=== PATIENT | female | born 1945 | race Caucasian/White ===

== ENCOUNTER → 2016-09-17 | Outpatient (CLI) | payer MEDICARE, OTHER ==
[2014-04-24 12:35] VITALS: BP 132/68
[~2016-09-17] MED LIST: ACET500T33 PO; APIX5TAB PO; ASCO500T PO; ASPI-482 PO; ATOR10TA PO; BIOT25005 PO; BUPIVACAINE MPF 0.25% 10 ML VIAL. ONE; CALTRATE 600 +1 EAC2 PO; CARV6.252 PO; CETI10TA22 PO; CILO50TA10 PO; CLOP75TA27 PO; DILT180C29 PO; DILT240C32 PO; DOFE500C PO; DRON400T PO; FERR325T20 PO; FURO20TA3 PO; GABA-586 PO; LISI40TA PO; MAGN250T5 PO; METO25TA9 PO; MULT1TAB6 PO; OMEG-33 PO; OMEP20TA63 PO; POLY17PO5 PO; POTA20TA82 PO; TORS20TA2 PO; TRAM50TA PO; methylPREDNISolone ACETATE 40 MG/ML VIAL. ONE
--- NOTE | 2016-09-18 01:40 | PAIN ---
DATE OF SERVICE: 09/17/2016 PROGRESS NOTE DIAGNOSES: 1. Myofascial pain. 2. Lumbar radiculopathy with lumbar spinal stenosis and post-lumbar laminectomy syndrome. 3. Cervical radiculopathy with cervical degenerative disk disease. HISTORY OF PRESENT ILLNESS: The patient is a 71-year-old female who returns for followup status post trigger point injections as well as lumbar epidural steroid injections. The patient has done well with each of these most recently. The trigger points have been doing quite well. She reports about 90% improvement after the last injections, which was 07/16/2016. The patient reports the pain is returning now in the left arm and upper extremity and shoulder more significant than it was before. The patient did have new x-rays of her cervical spine showing [id number] multilevel degenerative disk disease, advance since 2009 with bjygvcll-[id number] disk space at C3-C4, C4-C5, C6-C7, progressed since prior study with [id number] spurring at C6-C7, also progressed since previous study and bony foraminal narrowing at C4-C5, C5-C6 on the right and moderate foraminal narrowing at C3-C4 on the left. The patient reports still significant pain radiating to the left upper extremity aching and dull, decreased rotation of motion of the shoulder secondary to the pain. The patient reports the pain as an 8 on a scale of 10 currently. She has been taking oxycodone as well as a muscle relaxer, she is uncertain the name of. Also, arthritis strength Tylenol. She is having difficulty sleeping, most significantly the pain seems to be worse at the end of the day, in the evening when she is trying to get some sleep, it becoming much more difficult. The patient reports no new motor or sensory deficits, no new bowel or bladder incontinence or other complaints. PHYSICAL EXAMINATION: VITAL SIGNS: The patient's blood pressure is 130/64, pulse 62, respirations 18, temperature 97.8 degrees Fahrenheit and weight is 160 pounds. GENERAL: The patient is awake, alert, oriented, appropriate, very pleasant demeanor. HEENT: Head shows normocephalic, atraumatic. Extraocular movements are intact and symmetrical. Oral cavity shows mucous membranes moist and pink. Dentition is intact. NECK: Shows anterior throat supple without palpable lymphadenopathy noted. Swallow reflex is symmetrical. CHEST: Shows normal on inspection. Breath sounds are clear to auscultation bilaterally. HEART: Shows S1 and S2 clear. ABDOMEN: Soft, nontender, nondistended. No palpable organomegaly is noted. BACK: Shows spine grossly in midline. Cervical paraspinous musculature shows some moderate tenderness with palpation more specifically in the left than the right, but present bilaterally in the cervical paraspinous musculature, very firm rope-like musculature bilaterally as well as into the trapezius, in superomedial and lateral aspect of the trapezius, more on the left than the right, also suprascapular and infrascapular regions, very firm rope-like tenderness on the left, but not the right. Rhomboid muscle shows rope-like tenderness in multiple areas of trigger point musculature on the left side compared to the right as well. EXTREMITIES: Upper extremities show deep tendon reflexes at 1+ in the biceps and triceps tendons. Motor exam is strong with remote ruby on rails developer strength rated at 5/5 bicep and tricep flexion approximately 4 on a scale of 5, but equal and symmetrical. PLAN: Options were discussed with the patient. The patient's old chart was reviewed as her current medication regimen and updated. Current review of systems updated today as well. We will proceed with trigger point injections today in the aforementioned musculature. Risks were again discussed including, but not limited to bleeding, infection, possibility of intravascular injection sequelae, spread of local anesthetic and numbness, pneumothorax, side effects of steroid medication and poor results regarding pain control. The patient understands and wished to proceed. The patient will return to clinic in approximately 2 weeks for followup. He was counseled to return appointment, activity level and side effects to be aware of. I also discussed potential of cervical epidural steroid injection. 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 If this is cleared and deemed to be safe, we may do this in the future if the radicular component of her pain returns in the left upper extremity with regard to her new symptoms and findings on her cervical spine films. DIAGNOSES: 1. Myofascial pain. 2. Cervical radiculopathy with cervical degenerative disk disease. PROCEDURE: Trigger point injections of the bilateral cervical paraspinous musculature, bilateral trapezius, left deltoid musculature, posterior and lateral aspect and the left supra and infrascapular musculature and left rhomboid musculature using local anesthetic under sterile prep and drape. MEDICATIONS INJECTED: A total of 40 mg of Depo-Medrol plus a total of 14 mL of 0.25% bupivacaine. CONDITION AT DISCHARGE: Stable. The patient tolerated procedure well, had no complications. JANNETH TAYLOR MD DR: MIHAELA/carmen JOB#: [id number] / [id number]
== END | disposition home or self-care (01) ==
LOC: PNCL 07:30
PROVIDERS: ATTEND Anesthesiology
DX: M79.1 Myalgia (principal); M50.10 Cervical disc disorder with radiculopathy, unspecified cervical region; I10 Essential (primary) hypertension; K21.9 Gastro-esophageal reflux disease without esophagitis; Z90.49 Acquired absence of other specified parts of digestive tract; I73.9 Peripheral vascular disease, unspecified; I48.91 Unspecified atrial fibrillation; E78.00 Pure hypercholesterolemia, unspecified; Z79.01 Long term (current) use of anticoagulants; Z95.1 Presence of aortocoronary bypass graft; Z98.41 Cataract extraction status, right eye
CPT/HCPCS: 20553; J1030; J3490

== ENCOUNTER → 2016-10-29 | Outpatient (CLI) | payer MEDICARE, OTHER ==
[2014-04-24 12:35] VITALS: BP 132/68
--- NOTE | 2016-10-29 13:13 | PAIN ---
DATE OF SERVICE: 10/29/2016 PROGRESS NOTE FOR PAIN CLINIC DIAGNOSES: 1. Myofascial pain. 2. Lumbar radiculopathy with lumbar spinal stenosis and post-lumbar laminectomy syndrome. 3. Cervical radiculopathy with cervical degenerative disk disease. HISTORY OF PRESENT ILLNESS: The patient is a 71-year-old female, who returns today for followup status post trigger point injections in the upper neck, shoulders, upper back and left shoulder. The patient reports she did very much better with the neck pain, still has some pain in the left shoulder radiating to the left arm, mostly in the posterior aspect of the trapezius on the left side and into the forearm and hand, which is stinging and burning, also some tingling, stiff in the shoulders as well. She reports she saw her orthopedic surgeon, had an injection in the intra-articular aspect of the left shoulder, which helped the pain. We discussed about cervical epidural steroid injection with the patient; however, ____ clear her to be off her Eliquis for an adequate period of time to perform a neuraxial injection. The patient reports her pain as 8-9 on a scale of 10, significant the base of the neck and shoulders better in the upper neck after the last injections, but still painful, shoulders, neck on the left side radiates to the left arm in a radicular fashion, once again to the forearm and hand. The patient reports also some low back pain in the lumbar distribution and radiating into the bilateral buttock region. The patient reports no new motor or sensory deficits, no new bowel or bladder incontinence or other complaints. PHYSICAL EXAMINATION: VITAL SIGNS: The patient's blood pressure is 122/63, pulse 60, respirations 18, temperature is 98.2 degrees Fahrenheit, height is 5 feet 2 inches, weight is 159 pounds. GENERAL: The patient is awake, alert, oriented, appropriate, very pleasant demeanor. HEENT: Head shows normocephalic, atraumatic. Extraocular movements are intact, symmetrical. Oral cavity, mucous membranes moist and pink. Dentition is intact. NECK: Shows anterior throat supple without palpable lymphadenopathy noted. Swallow reflex is symmetrical. CHEST: Shows normal on inspection. Breath sounds are clear to auscultation bilaterally. HEART: Shows S1 and S2 clear. ABDOMEN: Soft, nontender, nondistended. No palpable organomegaly is noted. BACK: Shows spine grossly midline. Cervical paraspinous muscle shows some moderate tenderness with palpation and very firm rope-like musculature consistent with trigger point areas of musculature throughout the cervical paraspinous muscles. Upper lobe ____ and middle distribution to moderate extent more severe painful in the superior medial trapezius, more on the left than the right, as well as lateral trapezius on the left with very firm rope-like musculature consistent with trigger point areas of muscle in this region as well as the anterior and lateral deltoid on the left side, very significantly tender in these regions, also with some radiation into the bicep as well as some tricep with posterior deltoid palpation. The patient does show tenderness as well as the rhomboid distribution, also the patient's low back with well-healed surgical scars noted in the lumbar distribution, some very firm musculature in this region as well with very firm, tender rope-like muscles bilaterally in the low lumbar paraspinous musculature with radiation to the posterior gluteus with palpation bilaterally. EXTREMITIES: Upper extremities showed deep tendon reflexes at 1+ in the biceps and triceps tendons. Motor exam is strong with sustainability director strength about 5/5 on the right and 4/5 on the left. Options were discussed with the patient and the patient's old chart was reviewed as her current medication regimen updated. Current review of systems updated today as well. We will proceed with trigger point injections of the aforementioned musculature. Risks were then discussed including, but not limited to bleeding, infection, possibility of epidural hematoma, subsequent neurologic compromise, dural puncture, headaches, spinal cord and/or nerve damage, side effects of steroid medication and poor results regarding pain control. The patient understands and wishes to proceed. The patient will return to clinic in approximately 2 weeks for followup, was counseled on return appointment, activity level and side effects to be aware of. DIAGNOSES: 1. Myofascial pain. 2. Cervical radiculopathy with cervical degenerative disk disease. PROCEDURE: Trigger point injections of the bilateral cervical paraspinous musculature, bilateral trapezius, bilateral lumbar paraspinous musculature and left deltoid using local anesthetic under sterile prep and drape, medications injection is total of 40 mg Depo-Medrol plus total of 14 mL of 0.25% bupivacaine after negative aspiration at each injection. CONDITION AT DISCHARGE: Stable. The patient tolerated procedure well, had no complications. JANNETH TAYLOR MD DR: MIHAELA/carmen JOB#: [id number] / [id number]
== END | disposition home or self-care (01) ==
LOC: PNCL 08:43
PROVIDERS: ATTEND Anesthesiology
DX: M79.1 Myalgia (principal); M50.10 Cervical disc disorder with radiculopathy, unspecified cervical region; M48.06 Spinal stenosis, lumbar region; M54.16 Radiculopathy, lumbar region; M96.1 Postlaminectomy syndrome, not elsewhere classified; E78.00 Pure hypercholesterolemia, unspecified; I10 Essential (primary) hypertension; K21.9 Gastro-esophageal reflux disease without esophagitis; M19.90 Unspecified osteoarthritis, unspecified site; D64.9 Anemia, unspecified; Z90.49 Acquired absence of other specified parts of digestive tract; Z72.89 Other problems related to lifestyle
CPT/HCPCS: 20553; J1030; J3490

== ENCOUNTER → 2016-12-20 | Outpatient (CLI) | payer MEDICARE, OTHER ==
[2014-04-24 12:35] VITALS: BP 132/68
[~2016-12-20] MED LIST changes: -BUPIVACAINE MPF 0.25% 10 ML VIAL. ONE; +POLY17PO29 PO; -POLY17PO5 PO; -methylPREDNISolone ACETATE 40 MG/ML VIAL. ONE
--- NOTE | 2016-12-20 13:35 | KCIC ---
PROCEDURE MR of the left shoulder HISTORY Left shoulder pain since August. Weakness. TECHNIQUE Routine multiplanar sequences are obtained. COMPARISON None FINDINGS Moderate motion degradation. Acromioclavicular joint is mildly degenerative. Mild fluid within the joint. Thickening and hyperintensity of the rotator cuff compatible with tendinosis. Partial tearing of the upper subscapularis tendon insertion. No measurable supraspinatus or infraspinatus tendon tear. No significant subdeltoid bursal fluid. No significant glenohumeral joint effusion. Degenerative signal within the superior labrum. No clear-cut labral detachment. Biceps tendinosis with thickening and signal. No evidence of dislocation. No bone lesion or acute fracture. No acute soft tissue injury. At least mild chondromalacia at the glenohumeral joint. IMPRESSION 1. Rotator cuff tendinosis. Small partial tear at the upper subscapularis tendon. 2. Superior labral degeneration. 3. Biceps tendinosis. Electronically signed by: Felipe Brice MD (December 20, 2016 13:34:07)
== END | disposition home or self-care (01) ==
LOC: KCIC MRI 11:32
PROVIDERS: ATTEND Orthopaedic Surgery
DX: M25.512 Pain in left shoulder (principal)
CPT/HCPCS: 73221

== ENCOUNTER → 2017-04-25 | Outpatient (CLI) | payer MEDICARE, OTHER ==
[2014-04-24 12:35] VITALS: BP 132/68
[~2017-04-25] MED LIST changes: -BIOT25005 PO; +BIOT25006 PO; +BUPIVACAINE MPF 0.25% 10 ML VIAL. ONE; -CLOP75TA27 PO; +CLOP75TA57 PO; +MAGN250T10 PO; -MAGN250T5 PO; +METH-37 PO; +METO-239 PO; -METO25TA9 PO; +methylPREDNISolone ACETATE 40 MG/ML VIAL. ONE
--- NOTE | 2017-04-25 09:39 | PAIN ---
DATE OF SERVICE: 04/25/2017 DIAGNOSES: 1. Myofascial pain. 2. Lumbar radiculopathy with lumbar spinal stenosis and post-lumbar laminectomy syndrome. 3. Cervical radiculopathy with cervical degenerative disk disease. HISTORY OF PRESENT ILLNESS: The patient is a 71-year-old female who returns for followup status post trigger point injections, last seen on 10/30/2015. The patient did very well with the injections with about 70% improvement in the neck, upper back, and lower back pain. The patient reports the pain is beginning to return now in the neck, shoulders, upper back, mid back, especially in the low back, across the low back radiating to the lower extremities as well. The patient reports it is a 10 on a scale of 10 at its worst, 8 on average and a 7 on a scale of 10 at its least and it is 7 today. The patient reports it is constant, aching, burning, sometimes shooting pain but dull aching, tight sensation in the base of the neck and shoulders as well as in the low back. She has been increasing her activity, recently she was helping a friend move some objects to a new location at her home and has exacerbated the pain to some extent she believes, mostly in the low back. The patient reports it awakens her from sleep occasionally, but she sleeps about 6-7 hours a night. She can reposition or change positions to get back to sleep without too much difficulty. It is much worse during the day, walking, standing, changing positions, again with increased activity here recently. MEDICATIONS: The patient's medication list includes MiraLax, Tylenol, Prilosec, lisinopril, and Lipitor. 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 She is currently on antibiotic that has been on for about 9 days for recent sinus infection. ALLERGIES: THE PATIENT IS ALLERGIC TO PENICILLIN AND MORPHINE. REVIEW OF SYSTEMS: The patient's review of systems is positive for those items mentioned in history of present illness. All systems reviewed and otherwise negative. This is updated and well documented on the patient's chart. PHYSICAL EXAMINATION: VITAL SIGNS: The patient's blood pressure is 147/70, pulse 70, respirations 20, temperature is 97.8 degrees Fahrenheit, height is 5 feet 2 inches, weighs 153 pounds. GENERAL: The patient is awake, alert, oriented, appropriate, very pleasant demeanor. HEENT: Head shows normocephalic, atraumatic. Extraocular movements are intact, symmetrical. Oral cavity, mucous membranes are moist and pink. Dentition is intact. NECK: Shows anterior throat supple without palpable lymphadenopathy noted. Swallow reflex is symmetrical. CHEST: Shows normal on inspection. Breath sounds are clear to auscultation bilaterally. HEART: Shows S1 and S2 clear. ABDOMEN: Soft, nontender, nondistended. No palpable organomegaly is noted. No rebound or guarding demonstrated. BACK: Shows spine grossly in the midline. Slight exaggeration of thoracic kyphosis and mild flattening of lumbar lordotic curvature. Well healed surgical scars noted in the lumbar distribution. Cervical paraspinous musculature shows symmetrical. On inspection with palpation shows very firm, rope-like musculature in the inferior aspect of the cervical paraspinous muscles bilaterally as well as into the left greater than right trapezius into the superior medial aspect of the trapezius, also into the inferior aspect of the trapezius, very firm rope-like musculature, very tender with palpation consistent with trigger point areas of musculature bilaterally, again more tender on the left than the right rhomboid distribution as well as suprascapular region on the left, but not on the right side in the suprascapular region. Thoracic paraspinous muscle shows some supple musculature without significant trigger points. Palpation of the lumbar paraspinal musculature; however, shows significant tenderness, again left greater than right in the paraspinous musculature in the upper, middle and lower distribution with very firm rope-like musculature, very tender to touch, very palpable and firm, again slightly hypertrophied in the left compared to the right. The patient shows no tenderness over the spinous processes; however, sacrum or sacroiliac regions are very mildly tender only. The patient shows good rotation and motion of the lumbar spine, both laterally as well as extension and flexion without significant difficulty or pain reported. EXTREMITIES: The patient's lower extremities show deep tendon reflexes 1+ in the patellar and tendo calcaneus tendons. Motor exam is strong with dorsiflexion, extension, quadriceps and hamstring flexion rated at 4 on a scale of 5, but equal and symmetrical. Peripheral pulses are 1+ posterior tibial and dorsalis pedis pulses. No peripheral edema is noted. No clubbing or cyanosis. Upper extremity showed deep tendon reflexes 2+ in the biceps and triceps tendons and stereo map plotter operator strength is strong at about 4-5 on a scale 5 with stereo map plotter operator strength biceps and triceps flexion without exacerbation of pain with these maneuvers. Options were discussed with the patient and the patient's old chart was reviewed as her current medication regimen updated. Current review of systems updated today as noted. We will proceed with a series of trigger point injections of the aforementioned musculature, bilateral cervical paraspinous trapezius bilaterally, rhomboid distribution, lumbar paraspinous musculature bilaterally as well. Risks were discussed including but not limited to bleeding, infection, possibility of intravascular injection sequelae, spread of local anesthetic and numbness, pneumothorax, side effects of steroid medication and poor results regarding pain control. The patient understands and wishes to proceed. The patient will return to clinic in approximately 2 weeks for followup. She was counseled on return appointment, activity level and side effects to be aware of. DIAGNOSIS: Myofascial pain. PROCEDURE: Trigger point injections, bilateral cervical paraspinous musculature, bilateral trapezius, bilateral rhomboids, left suprascapular region and bilateral lumbar paraspinous musculature upper, middle and lower using local anesthetic under sterile prep and drape. MEDICATION: A total of 17 mL of 0.25% bupivacaine plus 40 mg total Depo-Medrol. The patient's condition at discharge is stable. The patient tolerated procedure well, had no complications. JANNETH TAYLOR MD DR: MIHAELA/carmen JOB#: [id number] / [id number]
== END | disposition home or self-care (01) ==
LOC: PNCL 08:15
PROVIDERS: ATTEND Anesthesiology
DX: M79.1 Myalgia (principal); M50.10 Cervical disc disorder with radiculopathy, unspecified cervical region; M48.06 Spinal stenosis, lumbar region; M96.1 Postlaminectomy syndrome, not elsewhere classified; E78.00 Pure hypercholesterolemia, unspecified; K21.9 Gastro-esophageal reflux disease without esophagitis; D64.9 Anemia, unspecified; F17.200 Nicotine dependence, unspecified, uncomplicated; Z88.6 Allergy status to analgesic agent; Z88.0 Allergy status to penicillin; Z98.41 Cataract extraction status, right eye; Z90.49 Acquired absence of other specified parts of digestive tract; Z86.69 Personal history of other diseases of the nervous system and sense organs; Z72.89 Other problems related to lifestyle; Z98.890 Other specified postprocedural states; Z86.718 Personal history of other venous thrombosis and embolism
CPT/HCPCS: 20553; J1030; J3490

== ENCOUNTER → 2017-07-21 | Outpatient (CLI) | payer MEDICARE, OTHER ==
[2014-04-24 12:35] VITALS: BP 132/68
--- NOTE | 2017-07-21 09:36 | PAIN ---
DATE OF SERVICE: 07/21/2017 PROGRESS NOTE FOR PAIN CLINIC DIAGNOSES: 1. Myofascial pain. 2. Lumbar radiculopathy with lumbar spinal stenosis, post-lumbar laminectomy syndrome. 3. Cervical radiculopathy with cervical degenerative disk disease. HISTORY OF PRESENT ILLNESS: The patient is a 72-year-old female who returns for followup status post trigger point injections, last seen on 06/05/2017. The patient did very well with about 80% improvement overall. The patient reports increasing activity and doing a lot more stationary bicycle riding and also walking and having some pain in her knees, the pain in her back, neck and shoulders is now returning to a mild extent, not to the baseline it was a few weeks ago, did very well for about 5 weeks after the injections. The patient reports the pain to 10 on a scale 10 at its worst, 9 on average, is 7 at its least and is 7 today. Describes pain across the base of the neck, shoulders, upper back, mid back, low back and radiating to the left lateral thigh and calf. The patient is aching, cramping, radiating becoming more constant, worse with activity, standing, walking, changing positions, better with lying down. She reports it awakens her from sleep occasionally, but she sleeps about 7-8 hours a night, most nights, does not awaken her all the time. The patient reports no new motor or sensory deficits and no new bowel or bladder incontinence or other complaints. PHYSICAL EXAMINATION: VITAL SIGNS: The patient's blood pressure is 137/66, pulse 67, respirations are 20, temperature 97.4 degrees Fahrenheit, height is 5 feet 2 inches and weight is 155 pounds. GENERAL: The patient is awake, alert, oriented, appropriate and very pleasant demeanor. HEENT: Head shows normocephalic and atraumatic. Extraocular muscles are intact and symmetrical. Oral cavity: Mucous membranes moist and pink. Dentition intact. NECK: Shows anterior throat supple without palpable lymphadenopathy noted. Swallow reflex symmetrical. CHEST: Shows normal on inspection. Breath sounds clear to auscultation bilaterally. HEART: Shows S1 and S2 clear. No murmurs auscultated. ABDOMEN: Soft, nontender and nondistended. No palpable organomegaly is noted. BACK: Shows spine grossly in the midline. Slight exaggeration of thoracic kyphosis, some mild flattening lumbar lordotic curvature. Well healed surgical scars noted in the lumbar distribution with palpation. EXTREMITIES: Show significant tenderness in the inferior aspect of cervical paraspinous musculature as well as the bilateral trapezius, rhomboid and thoracic paraspinous muscles, very firm rope-like musculature in all these regions bilaterally, very firm, very tender without specific radiation, also into the lumbar paraspinous musculature, more on the left than the right, very tender, firm rope-like musculature in this region as well, mostly inferior aspect of the paraspinous muscles of the lumbar distribution as well as the superior medial gluteus more on the left than the right as well but again very firm rope-like musculature, very firm and tender consistent with trigger point areas. The patient's lower extremities show deep tendon reflexes 1+ in the patellar and tendocalcaneus tendons. Motor exam is strong with 5/5 dorsiflexion, extension, quadriceps and hamstring flexion. Peripheral pulses are 1+. No peripheral edema is noted in the lower extremities. Options were discussed with the patient, the patient's old chart reviewed as well as her current medication regimen and updated. Current review of systems updated today as well. We will proceed with trigger point injections of the aforementioned musculature bilaterally. Risks were again discussed including, but not limited to bleeding, infection, possibility of intravascular injection sequelae, spread of local anesthetic and numbness, pneumothorax, side effects of steroid medication and poor results regarding pain control. The patient understands and wished to proceed. The patient will return to clinic in approximately 2 weeks for followup. She was counseled to return appointment, activity level and side effects to be aware of. DIAGNOSES: 1. Myofascial pain. 2. Lumbar radiculopathy with post-lumbar laminectomy syndrome. 3. Cervical radiculopathy with cervical degenerative disk disease. PROCEDURE: Trigger point injections of the bilateral trapezius, bilateral cervical paraspinous musculature, bilateral rhomboid musculature, bilateral lumbar paraspinous musculature and bilateral gluteus musculature with 0.25% bupivacaine total 16 mL after negative aspiration at each level with a total of 40 mg Depo-Medrol. CONDITION AT DISCHARGE: Stable. The patient tolerated procedure well, had no complications. This has done under sterile prep and drape using local anesthetic. JANNETH TAYLOR MD DR: Carmen JOB#: [id number] / [id number]
== END ==
LOC: PNCL 08:05
PROVIDERS: ATTEND Anesthesiology
DX: M79.1 Myalgia (principal); M50.10 Cervical disc disorder with radiculopathy, unspecified cervical region; M96.1 Postlaminectomy syndrome, not elsewhere classified; I73.9 Peripheral vascular disease, unspecified; E78.00 Pure hypercholesterolemia, unspecified; I48.91 Unspecified atrial fibrillation; I10 Essential (primary) hypertension; M19.90 Unspecified osteoarthritis, unspecified site; K21.9 Gastro-esophageal reflux disease without esophagitis; Z87.891 Personal history of nicotine dependence; Z98.890 Other specified postprocedural states; Z98.41 Cataract extraction status, right eye; Z90.49 Acquired absence of other specified parts of digestive tract; Z79.01 Long term (current) use of anticoagulants; Z86.718 Personal history of other venous thrombosis and embolism; Z98.61 Coronary angioplasty status
CPT/HCPCS: 20553; J1030; J3490

== ENCOUNTER → 2017-08-29 | Outpatient (CLI) | payer MEDICARE, OTHER ==
[~2017-08-29] MED LIST changes: -ACET500T33 PO; -APIX5TAB PO; -ASCO500T PO; -ASPI-482 PO; -ATOR10TA PO; -BIOT25006 PO; +BUPIVACAINE MPF 0.25% 10 ML VIAL.; -BUPIVACAINE MPF 0.25% 10 ML VIAL. ONE; -CALTRATE 600 +1 EAC2 PO; -CARV6.252 PO; -CETI10TA22 PO; -CILO50TA10 PO; -CLOP75TA57 PO; -DILT180C29 PO; -DILT240C32 PO; -DOFE500C PO; -DRON400T PO; -FERR325T20 PO; -FURO20TA3 PO; -GABA-586 PO; -LISI40TA PO; -MAGN250T10 PO; -METH-37 PO; -METO-239 PO; -MULT1TAB6 PO; -OMEG-33 PO; -OMEP20TA63 PO; -POLY17PO29 PO; -POTA20TA82 PO; -TORS20TA2 PO; -TRAM50TA PO; +methylPREDNISolone ACETATE 40 MG/ML VIAL.; -methylPREDNISolone ACETATE 40 MG/ML VIAL. ONE
== END | disposition home or self-care (01) ==
LOC: PNCL 07:35
DX: M79.1 Myalgia (principal); M96.1 Postlaminectomy syndrome, not elsewhere classified; M54.16 Radiculopathy, lumbar region; M48.061 Spinal stenosis, lumbar region without neurogenic claudication; M50.10 Cervical disc disorder with radiculopathy, unspecified cervical region; K21.9 Gastro-esophageal reflux disease without esophagitis; D64.9 Anemia, unspecified; F17.200 Nicotine dependence, unspecified, uncomplicated; Z88.6 Allergy status to analgesic agent; Z86.69 Personal history of other diseases of the nervous system and sense organs; Z98.890 Other specified postprocedural states; Z95.1 Presence of aortocoronary bypass graft; Z90.49 Acquired absence of other specified parts of digestive tract; Z87.39 Personal history of other diseases of the musculoskeletal system and connective tissue; Z72.89 Other problems related to lifestyle; Z88.0 Allergy status to penicillin
CPT/HCPCS: 20553; J1030; J3490

== ENCOUNTER → 2017-11-27 | Outpatient (CLI) | payer MEDICARE, OTHER | LOC: PNCL 08:00 | DX: M79.1 Myalgia (principal); M96.1 Postlaminectomy syndrome, not elsewhere classified; M48.061 Spinal stenosis, lumbar region without neurogenic claudication; M50.10 Cervical disc disorder with radiculopathy, unspecified cervical region | CPT/HCPCS: 20553; J1030; J3490 ==

== ENCOUNTER → 2018-04-02 | Outpatient (CLI) | payer MEDICARE, OTHER ==
[2014-04-24 12:35] VITALS: BP 132/68
[~2018-04-02] MED LIST changes: +ACET500T33 PO; +APIX5TAB PO; +ASCO500T PO; +ASPI-482 PO; +ATOR10TA PO; +BIOT25006 PO; -BUPIVACAINE MPF 0.25% 10 ML VIAL.; +BUPIVACAINE MPF 0.25% 10 ML VIAL. ONE; +CALTRATE 600 +1 EAC2 PO; +CARV6.252 PO; +CETI10TA22 PO; +CILO50TA10 PO; +CLOP75TA57 PO; +DILT180C29 PO; +DILT240C32 PO; +DOFE500C PO; +DRON400T PO; +FERR325T20 PO; +FURO20TA3 PO; +GABA-586 PO; +LISI-130 PO; +MAGN250T10 PO; +METH-37 PO; +METO-239 PO; +MULT1TAB6 PO; +OMEG-33 PO; +OMEP20TA63 PO; +POLY17PO29 PO; +POTA20TA82 PO; +TORS20TA2 PO; +TRAM50TA PO; -methylPREDNISolone ACETATE 40 MG/ML VIAL.; +methylPREDNISolone ACETATE 40 MG/ML VIAL. ONE
--- NOTE | 2018-04-02 12:37 | PAIN ---
DATE OF SERVICE: 04/02/2018 DIAGNOSES: 1. Myofascial pain. 2. Lumbar radiculopathy with lumbar spinal stenosis and post-lumbar laminectomy syndrome. 3. Cervical radiculopathy with cervical degenerative disk disease. HISTORY OF PRESENT ILLNESS: The patient is a 72-year-old female who returns for followup status post trigger point injections, last seen on 11/27/2017. The patient did very well with about 80% improvement from the tracheal injection. The patient reports that the pain has been returning for about a month now, increased in the base of the neck, shoulders, upper back, mid back, low back, especially in the left side of her low back and left hip. The patient reports the pain is a 10 on a scale of 10 at its worst, 8 on average, 6 at its least. It is a constant aching pain, is dull, stabbing, shooting, sometimes sharp as well. The patient reports no new motor or sensory deficits, no new bowel or bladder incontinence or other complaints. The patient reports it has been awakening her from sleep but about every 6 hours only. She needed to usually reposition and get back to sleep. The patient reports no new motor or sensory deficits, no new bowel or bladder incontinence or other complaints. PHYSICAL EXAMINATION: VITAL SIGNS: The patient's blood pressure 131/65, pulse 69, respirations 18, temperature is 98.1 degrees Fahrenheit, height is 5 feet 3 inches, weighs 155 pounds. GENERAL: The patient is awake, alert, oriented, appropriate, very pleasant demeanor. HEENT: Head shows normocephalic, atraumatic. Extraocular movements are intact, symmetrical. Oral cavity: Mucous membranes moist and pink. Dentition is intact. NECK: Shows anterior throat supple without palpable lymphadenopathy noted. Swallow reflex is symmetrical. CHEST: Shows normal on inspection. Breath sounds clear to auscultation bilaterally. HEART: Shows S1, S2 clear. No murmurs auscultated. ABDOMEN: Soft, nontender, nondistended. No palpable organomegaly is noted. No rebound or guarding demonstrated. BACK: Shows spine grossly in the midline. Normal appearing thoracic kyphosis and some slight flattening of lumbar lordotic curvature. A well-healed surgical scar noted. Lumbar paraspinal musculature showed symmetrical on inspection with palpation shows some moderate tenderness diffusely with very firm rope-like musculature, this is consistent with trigger point areas of muscle, very firm, very tender throughout the upper, middle and lower distribution of paraspinous muscles, also in the left superior medial gluteus more than the right. The patient's neck shows significant tenderness as well in the posterior cervical paraspinous musculature, very firm rope-like musculature consistent with trigger point areas of muscles bilaterally, essentially equal right and left in the superior, medial and inferior aspect of the cervical paraspinous musculature as well as the trapezius, more on the left than the right. Once again, very firm rope-like musculature consistent with trigger point. There is no specific radiation with each of these areas, but very firm, very tender. The patient has good rotational motion both cervical and lumbar spines without significant difficulty. Thoracic spine shows some moderate tenderness in the superior aspect of the thoracic paraspinous musculature with rope-like musculature and trigger point areas, but only the superior aspect, not in the middle and lower. Options were discussed with the patient. The patient's old chart was reviewed as her current medication regimen and updated. Current review of systems is updated today as well. We will proceed with the trigger point injections today with risks discussed including, but not limited to bleeding, infection, possibility of intravascular injection sequelae, spread of local anesthetic and numbness, pneumothorax, side effects of steroid medication and poor results regarding pain control. The patient understands and wished to proceed. The patient will return to clinic in approximately 2 weeks for followup. She was counseled on return appointment, activity level and side effects to be aware of. DIAGNOSES: 1. Myofascial pain. 2. Lumbar radiculopathy with lumbar post-laminectomy syndrome. 3. Cervical radiculopathy with degenerative disk disease, cervical spine. PROCEDURE: Trigger point injections, bilateral cervical paraspinous musculature, bilateral trapezius, bilateral thoracic paraspinous musculature, bilateral lumbar paraspinous musculature and bilateral gluteus musculature under sterile prep and drape using local anesthetic. MEDICATION INJECTED: A total of 40 mg Depo-Medrol plus total of 17 mL 0.25% bupivacaine with negative aspiration at each injection point. CONDITION ON DISCHARGE: Stable. The patient tolerated the procedure well, had no complications. JANNETH TAYLOR MD DR: MIHAELA/carmen JOB#: [id number] / [id number]
== END | disposition home or self-care (01) ==
LOC: PNCL 08:20
PROVIDERS: ATTEND Anesthesiology
DX: M79.1 Myalgia (principal); M96.1 Postlaminectomy syndrome, not elsewhere classified; M50.10 Cervical disc disorder with radiculopathy, unspecified cervical region; Z88.0 Allergy status to penicillin; Z88.5 Allergy status to narcotic agent
CPT/HCPCS: 20553; J1030; J3490

== ENCOUNTER → 2018-04-21 | Outpatient (CLI) | payer MEDICARE, OTHER ==
[2014-04-24 12:35] VITALS: BP 132/68
[~2018-04-21] MED LIST changes: +ALEN70TA5 PO; +AMLO10TA6 PO; -BUPIVACAINE MPF 0.25% 10 ML VIAL. ONE; +GADOBUTROL 7.5 MMOL/7.5 ML VIAL IV ONE; -methylPREDNISolone ACETATE 40 MG/ML VIAL. ONE
--- NOTE | 2018-04-21 10:40 | KCIC ---
EXAM: MRI Left foot, attention to midfoot DATE: 04/21/2018 8:45 AM CLINICAL HISTORY: Soft tissue mass left midfoot, tenderness to touch. 4 months COMPARISON: None available. TECHNIQUE: Planar multisequence MR imaging of the left midfoot was performed before and after the administration of intravenous gadolinium contrast. FINDINGS: A fiducial marker is placed overlying the region of patient's palpable abnormality. This corresponds to the level of the medial cuneiform dorsally. Immediately subjacent to the fiducial marker there is a fluid collection with thin enhancing margin measuring approximately 2.7 x 3 x 0.8 cm surrounding the tibialis anterior tendon. This is most consistent with focal tear synovitis/stenosing tenosynovitis. Immediately subjacent to this ganglion is degenerative changes of the naviculocuneiform joints most prominent at the medial and middle naviculocuneiform joints with associated subchondral cystic change and edema as well as chondral thinning. Degenerative changes are also seen at the hallux MTP joint with advanced cystic change, associated proliferative change and significant marrow edema. Intermetatarsal bursitis is seen in the first, second and third intermetatarsal bursa. T1 marrow signal is grossly preserved without evidence of fracture.. The visualized intrinsic muscles of the foot are normal in signal and morphology. Focal thickening of the central band of the plantar fascia may represent plantar fasciitis. The Lisfranc ligament is intact. No tarsometatarsal offset. IMPRESSION: 1. The palpable abnormality delineated by fiducial marker corresponds to focal tenosynovitis surrounding the tibialis anterior tendon, possibly stenosing tenosynovitis. 2. Degenerative changes are seen most prominent at the hallux MTP joint and naviculocuneiform joints with subchondral cystic change marrow edema and chondromalacia. 3. Focal thickening of the central band of the plantar fascia is seen with plantar fasciitis. Electronically signed by: Jaiden Gramajo MD (04/21/2018 10:37 AM) [facility]
== END | disposition home or self-care (01) ==
LOC: KCIC MRI 08:33
DX: M19.072 Primary osteoarthritis, left ankle and foot (principal); M94.272 Chondromalacia, left ankle and joints of left foot; M72.2 Plantar fascial fibromatosis; M65.9 Synovitis and tenosynovitis, unspecified; I10 Essential (primary) hypertension; K21.9 Gastro-esophageal reflux disease without esophagitis; E78.00 Pure hypercholesterolemia, unspecified; F17.200 Nicotine dependence, unspecified, uncomplicated; M19.90 Unspecified osteoarthritis, unspecified site; Z95.1 Presence of aortocoronary bypass graft; Z98.41 Cataract extraction status, right eye; Z88.0 Allergy status to penicillin; Z88.5 Allergy status to narcotic agent; Z88.6 Allergy status to analgesic agent; Z79.01 Long term (current) use of anticoagulants; Z79.82 Long term (current) use of aspirin; Z86.718 Personal history of other venous thrombosis and embolism; Z87.39 Personal history of other diseases of the musculoskeletal system and connective tissue; Z86.69 Personal history of other diseases of the nervous system and sense organs; Z90.49 Acquired absence of other specified parts of digestive tract
CPT/HCPCS: 73720; 82565; A9585

== ENCOUNTER → 2018-06-09 | Outpatient (CLI) | payer MEDICARE, OTHER ==
[2014-04-24 12:35] VITALS: BP 132/68
[~2018-06-09] MED LIST changes: +BUPIVACAINE MPF 0.25% 30 ML VIAL. ONE; -GADOBUTROL 7.5 MMOL/7.5 ML VIAL IV ONE; +methylPREDNISolone ACETATE 40 MG/ML VIAL. ONE
--- NOTE | 2018-06-09 23:53 | PAIN ---
DATE OF SERVICE: 06/09/2018 DIAGNOSES: 1. Myofascial pain. 2. Lumbar radiculopathy with lumbar spinal stenosis, post-laminectomy syndrome. 3. Cervical radiculopathy with cervical degenerative disk disease. HISTORY OF PRESENT ILLNESS: The patient is a 73-year-old female who returns for followup status post trigger point injection on 04/02/2018. The patient did very well about 80% improvement until the last 2 weeks ago. She has been wearing a boot on her left foot. She has a torn ligament and she feels thrown her off balance when she is having more pain in her back as well as in her shoulders, neck, and left upper extremity. The patient reports the pain is a 9 on a scale of 10 at its worst, 9 on average, 7 at its least and is a 7 today. The patient reports it is radiating, stabbing, aching, tight, shooting pain in the base of the neck, shoulders, again left greater than right into the mid back, low back, and into the bilateral gluteus. The patient reports she did very well after trigger point injections, sleeping better, increasing her activity, distance walking, doing household activities with greater ease and comfort and generally felt overall better. The patient reports no new motor or sensory deficits. No new changes or other complaints. PHYSICAL EXAMINATION: VITAL SIGNS: The patient's blood pressure is 131/64, pulse 61, respirations 18, temperature 97.5 degrees Fahrenheit, height is 5 feet 2 inches, weight is 157 pounds. GENERAL: The patient is awake, alert, oriented, appropriate, very pleasant demeanor. HEENT: Shows normocephalic, atraumatic. Extraocular movements are intact and symmetrical. Oral cavity: Mucous membranes moist and pink. Dentition is intact. NECK: Shows anterior throat supple without palpable lymphadenopathy noted. Swallow reflex is symmetrical. CHEST: Shows normal on inspection. Breath sounds clear to auscultation bilaterally. HEART: Shows S1, S2 clear. No murmurs auscultated. ABDOMEN: Soft, nontender, nondistended. BACK: Shows spine grossly in the midline. Slight exaggeration of thoracic kyphosis and some minor flattening of cervical lordotic curvature and normal lumbar lordotic curvature. Paraspinous musculature shows significant tenderness in the cervical distribution bilaterally in the middle and lower distribution of paraspinous muscles as well as the trapezius muscles, greater on the left than the right with very firm rope-like musculature consistent with trigger point areas of musculature, very firm, very tender, present on the anterior deltoid and lateral deltoid as well on the left only. The patient has good rotational motion of the cervical spine without difficulty, extension, flexion, right and left lateral rotation, but significant tenderness with palpation in the musculature, very firm, very tender as noted, but without any specific radiation. The patient's mid back shows some mild tenderness. The low back shows significant tenderness throughout the upper, middle, lower distribution of paraspinous musculature, again more on the left than the right, but very firm rope-like musculature consistent with trigger point areas of musculature without radiation. The patient shows good rotational motion of lumbar spine as well without exacerbation of the pain. EXTREMITIES: The patient's upper extremities show deep tendon reflexes 1+ in the biceps and triceps tendons. Lower extremities are 1+ patellar and tendo calcaneus tendons. Motor exam is strong with watch crystal cutter strength rated at 5/5 as is biceps and triceps flexion. Lower extremities show boot on the patient's left foot. The quadriceps and hamstring flexion is 5/5 and equal. Options were discussed with the patient. The patient's old chart was reviewed as is her current medication regimen updated. Current review of systems is updated today as well. We will proceed with trigger point injections in the aforementioned musculature. Risks were discussed including but not limited to bleeding, infection, possibility of intravascular injection sequelae, spread of local anesthetic and numbness, pneumothorax, side effects of steroid medication and poor results regarding pain control. The patient understands and wished to proceed. The patient will return to the clinic in approximately 2 weeks for followup, was counseled on return appointment, activity level and side effects to be aware of. DIAGNOSIS: Myofascial pain. PROCEDURE: Trigger point injections, bilateral cervical paraspinous musculature, bilateral trapezius, bilateral rhomboid and thoracic paraspinous musculature, bilateral lumbar paraspinous musculature under sterile prep and drape using local anesthetic. MEDICATION INJECTED: A total of 14 mL of 0.25% bupivacaine after negative aspiration at each injection site and 40 mg total of Depo-Medrol. CONDITION AT DISCHARGE: Stable. The patient tolerated the procedure well, had no complications. JANNETH TAYLOR MD DR: MIHAELA/carmen JOB#: [id number] / [id number]
== END | disposition home or self-care (01) ==
LOC: PNCL 09:43
PROVIDERS: ATTEND Anesthesiology
DX: M79.18 Myalgia, other site (principal); M96.1 Postlaminectomy syndrome, not elsewhere classified; M50.10 Cervical disc disorder with radiculopathy, unspecified cervical region; I10 Essential (primary) hypertension; K21.9 Gastro-esophageal reflux disease without esophagitis; Z79.01 Long term (current) use of anticoagulants; F17.200 Nicotine dependence, unspecified, uncomplicated; E78.00 Pure hypercholesterolemia, unspecified; M19.90 Unspecified osteoarthritis, unspecified site; Z79.899 Other long term (current) drug therapy; Z79.82 Long term (current) use of aspirin; Z90.49 Acquired absence of other specified parts of digestive tract; Z88.6 Allergy status to analgesic agent; Z88.5 Allergy status to narcotic agent; Z88.0 Allergy status to penicillin; Z98.41 Cataract extraction status, right eye; Z95.1 Presence of aortocoronary bypass graft; Z98.890 Other specified postprocedural states
CPT/HCPCS: 20553; J1030; J3490

== ENCOUNTER → 2018-07-20 | Outpatient (CLI) | payer MEDICARE, OTHER ==
[2014-04-24 12:35] VITALS: BP 132/68
[~2018-07-20] MED LIST changes: +BUPIVACAINE MPF 0.25% 10 ML VIAL. ONE; -BUPIVACAINE MPF 0.25% 30 ML VIAL. ONE; +CARV6.2511 PO; -CARV6.252 PO; -GABA-586 PO; +GABA300C18 PO
--- NOTE | 2018-07-20 10:19 | PAIN ---
DATE OF SERVICE: 07/20/2018 PROGRESS NOTE FOR PAIN CLINIC DIAGNOSES: 1. Myofascial pain. 2. Lumbar radiculopathy with lumbar spinal stenosis and lumbar post-laminectomy syndrome. 3. Cervical radiculopathy with cervical degenerative disk disease. HISTORY OF PRESENT ILLNESS: The patient is a 73-year-old female who returns for followup status post trigger point injections, last seen 06/09/2018. The patient did very well, reports approximately 60% improvement overall and still having some good relief from the pain. The patient reports no new motor or sensory deficits. No new bowel or bladder incontinence or other complaints. There is still significant pain in the base of the neck, shoulders, upper back, mid back and low back bilaterally, slightly worse on the right than the left in the upper back at this time. The patient reports she initially was doing very well, has increased her activity with greater ease and comfort, did better walking distances, able to do household activities and traveling. The patient does have a trip coming up to see her family for [place] and she is wishing to get better prior to that. The patient reports her pain is a 10 on a scale of 10 at its worst, 6 on average, 6 at its least and it is a 6 today. She describes it as aching, dull, sharp, shooting, radiating, burning, stabbing, sometimes cramping pain in the neck and shoulders, all through midback and low back. The patient reports no new motor or sensory deficits. No bowel or bladder incontinence. No other complaints. She reports it is worse with walking, standing, changing positions or general activity; better with sitting or lying down. It does not awaken her from sleep at night. PHYSICAL EXAMINATION: VITAL SIGNS: Today, her blood pressure is 155/61, pulse 78, respirations 18 and temperature is 98.2 degrees Fahrenheit. Height is 5 feet 3 inches, weight is 162 pounds. GENERAL: The patient is awake, alert, oriented, appropriate, very pleasant demeanor. HEENT EXAMINATION: Shows normocephalic, atraumatic. Extraocular movements are intact and symmetrical. Oral cavity, mucous membranes moist and pink. Dentition is intact. NECK: Shows anterior throat supple, without palpable lymphadenopathy noted. Swallow reflex is symmetrical. CHEST: Shows normal with inspection. Breath sounds are clear to auscultation bilaterally. HEART: Shows S1, S2 clear. No murmurs auscultated. ABDOMEN: Soft, nontender and nondistended. No palpable organomegaly is noted. No rebound or guarding demonstrated. BACK: Shows spine grossly in the midline. Normal-appearing thoracic kyphosis and some minor flattening of the lumbar lordotic curvature, with well-healed surgical scar noted. Cervical paraspinous muscle shows very firm, very rope-like musculature throughout the upper, middle and lower distribution of the paraspinous muscles bilaterally as well as into the trapezius, more on the right than the left in the lateral and medial aspect of the trapezius superiorly. No specific radiation is demonstrated, but significant tenderness with all the areas. This is true in the rhomboid distribution as well as the lumbar paraspinous musculature in the low lumbar distribution, very tender with very firm rope-like musculature in the paraspinous muscles bilaterally, consistent with trigger point areas of musculature, again without significant radiation. EXTREMITIES: Examination of the upper extremity, deep tendon reflexes 2+ in the biceps and triceps tendons. Lower extremities are 1+ patellar and tendo calcaneus tendons. Motor exam is strong with 5/5 blade sharpener strength, bicep and tricep flexion and 5/5 dorsiflexion and extension bilaterally. Peripheral pulses are 2+ radial, 1+ posterior tibial. No peripheral edema is noted bilaterally. Options were discussed with the patient. The patient's old chart was reviewed was her current medication regimen updated. Current review of systems updated today as well. We will proceed with trigger point injections of the aforementioned musculature. Risks were again discussed including, but not limited to bleeding, infection, possibility of intravascular injection sequelae, spread of local anesthetic and numbness, pneumothorax, side effects of steroid medication and poor results regarding pain control. The patient understands and wished to proceed. The patient will return to the clinic in approximately 2 weeks for followup. She was counseled on her return appointment, activity level and side effects to be aware of. DIAGNOSIS: Myofascial pain. PROCEDURE: Trigger point injections to the bilateral cervical paraspinous musculature, bilateral trapezius musculature, bilateral rhomboid musculature and bilateral lumbar paraspinous musculature under sterile prep and drape using local anesthetic. MEDICATIONS INJECTED: A total of 17 mL of 0.25% bupivacaine and a total of 40 mg of Depo-Medrol after negative aspiration at each injection site. CONDITION UPON DISCHARGE: Stable. The patient tolerated the procedure well, had no complications. JANNETH TAYLOR MD DR: MIHAELA/carmen JOB#: [id number] / [id number]
== END | disposition home or self-care (01) ==
LOC: PNCL 07:30
PROVIDERS: ATTEND Anesthesiology
DX: M79.18 Myalgia, other site (principal); M48.061 Spinal stenosis, lumbar region without neurogenic claudication; M96.1 Postlaminectomy syndrome, not elsewhere classified; M50.10 Cervical disc disorder with radiculopathy, unspecified cervical region; Z88.0 Allergy status to penicillin; Z88.5 Allergy status to narcotic agent
CPT/HCPCS: 20553; J1030; J3490

== ENCOUNTER → 2018-10-14 | Outpatient (CLI) | payer MEDICARE, OTHER ==
[2014-04-24 12:35] VITALS: BP 132/68
[~2018-10-14] MED LIST changes: -ALEN70TA5 PO; +ALEN70TA6 PO; -AMLO10TA6 PO; +AMLO10TA8 PO; -BUPIVACAINE MPF 0.25% 10 ML VIAL. ONE; +BUPIVACAINE MPF 0.25% 30 ML VIAL. ONE
--- NOTE | 2018-10-15 05:09 | PAIN ---
DATE OF SERVICE: 10/14/2018 PROGRESS NOTE FOR PAIN CLINIC DIAGNOSES: 1. Myofascial pain. 2. Lumbar radiculopathy with lumbar spinal stenosis and post-lumbar laminectomy syndrome. 3. Cervical radiculopathy with cervical degenerative disk disease. HISTORY OF PRESENT ILLNESS: The patient is a 73-year-old female who returns for followup, last seen on 07/20/2018 with trigger point injections with very good results for a month, had near 100% improvement. The patient reports pain has returned now over the past 2 months or so, increasing the pain in the base of the neck, shoulders, upper back, mid back, low back with very tight and stiff sensation and crampy. The patient reports it awakens her from sleep about every 5 hours, described as a cramping pain, is becoming more constant, aching, sometimes sharp, but tight especially in the left shoulder. The patient reports her pain is a 10 on a scale of 10 at its worst, 10 on average, 8 at its least and is a 10 today. The patient reports initially she was increasing her activities, household activities, also walking greater distances, sleeping better, but now the pain is returning fairly significantly as described. The patient reports no new motor or sensory deficits, no new bowel or bladder incontinence or other complaints. PHYSICAL EXAMINATION: VITAL SIGNS: The patient's blood pressure is 132/68, pulse 66, respirations are 16, temperature is 98.0 degrees Fahrenheit, height is 5 feet 2 inches and weighs 158 pounds. GENERAL: The patient is awake, alert, oriented, appropriate, very pleasant demeanor. HEENT: Head shows normocephalic and atraumatic. Extraocular movements are intact and symmetrical. Oral cavity: Mucous membranes are moist and pink. Dentition is intact. NECK: Shows anterior throat is supple without palpable lymphadenopathy noted. Swallow reflex is symmetrical. CHEST: Shows normal on inspection. Breath sounds are clear to auscultation bilaterally. HEART: Shows S1 and S2 clear. No murmurs are auscultated. ABDOMEN: Soft, nontender and nondistended. No palpable organomegaly is noted. No rebound or guarding demonstrated. BACK: Shows spine grossly in the midline. Normal appearing thoracic kyphosis, some minor flattening of the lumbar lordotic curvature. Well-healed surgical scar in the lumbar distribution with cervical paraspinous muscle shows very firm rope-like musculature throughout the upper, middle, lower distribution of the paraspinous muscles into the superior medial trapezius more on the left than the right, much more tender on the left than right, without specific radiation, but with significant pain. This is true with rotational motion mostly with extension, but not forward flexion with some tightness described with forward flexion in the neck, more on the left itself. Trigger point areas of very firm rope-like musculature throughout the trapezius as well as the rhomboid musculature into the thoracic paraspinous muscles and into the lumbar paraspinous muscles again worse on the left than the right in the thoracic and lumbar distributions, but very firm rope-like musculature, very tender consistent with trigger point areas of muscle throughout all of these regions bilaterally. EXTREMITIES: The patient's upper extremities show deep tendon reflexes 2+ in the biceps and triceps tendons. Lower extremities are 1+ in the patellar and tendo calcaneus tendons. Motor exam is strong with associate doctor strength rated at 5/5 as is bicep and tricep flexion, dorsiflexion, extension, quadriceps and hamstring flexion is 5/5 equal as well. Peripheral pulses are 2+ radial and 1+ posterior tibial. No peripheral edema is noted in any of the extremities. Options were discussed with the patient. The patient's old chart was reviewed as was her current medication regimen updated. Current review of systems updated today as well. We will proceed with trigger point injections of the identified musculature. Risks were again discussed including, but not limited to bleeding, infection, possibility of intravascular injection sequelae, pneumothorax, spread of local anesthetic and numbness, side effects of steroid medication and poor results regarding pain control. The patient understands and wished to proceed. The patient will return to the clinic in approximately 2 weeks for followup, was counseled as to return appointment, activity level and side effects to be aware of. DIAGNOSIS: Myofascial pain. PROCEDURE: Trigger point injections, bilateral cervical paraspinous muscles, bilateral trapezius, bilateral rhomboid musculature, bilateral thoracic paraspinous musculature and bilateral lumbar paraspinous musculature under sterile prep and drape using local anesthetic. MEDICATION INJECTED: A total of 17 mL of 0.25% bupivacaine and 40 mg total of Depo-Medrol after negative aspiration at each injection site. CONDITION AT DISCHARGE: Stable. The patient tolerated the procedure well and had no complications. JANNETH TAYLOR MD DR: Carmen JOB#: [id number] / [id number]
== END | disposition home or self-care (01) ==
LOC: PNCL 08:19
PROVIDERS: ATTEND Anesthesiology
DX: M79.18 Myalgia, other site (principal); M96.1 Postlaminectomy syndrome, not elsewhere classified; M48.061 Spinal stenosis, lumbar region without neurogenic claudication; M50.10 Cervical disc disorder with radiculopathy, unspecified cervical region; Z88.0 Allergy status to penicillin; Z88.5 Allergy status to narcotic agent
CPT/HCPCS: 20553; J1030; J3490

== ENCOUNTER → 2018-12-11 | Outpatient (CLI) | payer MEDICARE, OTHER ==
[2014-04-24 12:35] VITALS: BP 132/68
[~2018-12-11] MED LIST changes: +BUPIVACAINE MPF 0.25% 10 ML VIAL. ONE; -BUPIVACAINE MPF 0.25% 30 ML VIAL. ONE
--- NOTE | 2018-12-12 00:59 | PAIN ---
DATE OF SERVICE: 12/11/2018 DIAGNOSES: 1. Myofascial pain. 2. Lumbar radiculopathy with lumbar spinal stenosis and post-lumbar laminectomy syndrome. 3. Cervical radiculopathy with cervical degenerative disk disease. HISTORY OF PRESENT ILLNESS: The patient is a 73-year-old female who returns for followup status post trigger point injections, most recently on 10/14/2018. She did very well with this. The patient reports about 90% improvement for about a month after the injections. The patient had rescheduled her last appointment with some family issues and returns today reporting significant pain in the base of the neck, shoulder, upper back, mid back, low back and into the left lateral extremity as well as the right at times. She reports it is a 10 on a scale of 10 at its worst, 8 on average, 6 at its least and is 8 today. The patient reports it is becoming more constant, more aching, sharp and shooting, dull, stabbing and cramping, some in the low back, also in the neck and shoulders. The patient reports no new motor or sensory deficits, no new bowel or bladder incontinence. Initially, she was doing much better with activities, walking, doing household activities, sleeping much better, now is beginning to awaken her from sleep, especially with the pain in the upper back and neck, about every 4-5 hours. The patient reports no new motor or sensory deficits, no new bowel or bladder incontinence or other complaints. PHYSICAL EXAMINATION: VITAL SIGNS: Today, the patient's blood pressure is 135/68, pulse 63, respirations 16, temperature 98.0 degrees Fahrenheit, height is 5 feet 2 inches, weighs 156 pounds. GENERAL: The patient is awake, alert, oriented, appropriate, very pleasant demeanor. HEENT: Shows normocephalic, atraumatic. Extraocular muscles are intact and symmetrical. Oral cavity: Mucous membranes are moist and pink. Dentition is intact. NECK: Shows anterior throat supple without palpable lymphadenopathy noted. Swallow reflex is symmetrical. CHEST: Shows normal with inspection. Breath sounds clear to auscultation bilaterally. HEART: Shows S1, S2 clear. No murmurs auscultated. ABDOMEN: Soft, nontender, nondistended. No palpable organomegaly is noted. No rebound or guarding demonstrated. BACK: Shows spine grossly in the midline. Normal-appearing thoracic kyphosis and lumbar lordotic curvature. Cervical paraspinous muscle shows symmetrical on inspection, with palpation shows some moderate tenderness with significant very firm rope-like musculature throughout the bilateral cervical paraspinous musculature superior, medial and inferior aspect, also superior medial trapezius with very firm rope-like musculature consistent with trigger point areas of muscle bilaterally without specific radiation, but significantly tender with palpation. The patient has good rotational motion of cervical spine, both laterally as well as extension and flexion without significant difficulty. The patient's mid back shows again significant pain in the trapezius as well as the rhomboid and thoracic paraspinous musculature with very firm rope-like musculature consistent with trigger point areas, also present in the lumbar distribution as well bilaterally, slightly worse on the left than the right. In the low lumbar paraspinous musculature, very firm rope-like musculature consistent with trigger point areas of muscle without specific radiation. No significant tenderness with even moderate palpation on the ropey musculature in this region. EXTREMITIES: The patient's extremities showed upper extremity deep tendon reflexes 2+ in the biceps and triceps tendons. Motor exam is strong with 5/5 crusher feeder strength, bicep and tricep flexion. The patient's lower extremities showed 2+ in the patellar, 1+ tendo-calcaneus tendons. Motor exam is strong with 5/5 dorsiflexion, extension and equal bilaterally. Options were discussed with the patient. The patient's old chart was reviewed as was her current medication regimen updated. Current review of systems updated today as well. We will proceed with trigger point injections of the identified musculature. Risks were again discussed including, but not limited to bleeding, infection, possibility of intravascular injection sequelae, pneumothorax, side effects of steroid medication and poor results regarding pain control. The patient understands and wished to proceed. The patient will return to clinic in approximately 4 weeks for followup or sooner if necessary. The patient was counseled on activity level as well as side effects to be aware of. DIAGNOSIS: Myofascial pain. PROCEDURE: Trigger point injections, bilateral cervical paraspinous musculature, bilateral trapezius musculature, bilateral thoracic paraspinous musculature, bilateral lumbar paraspinous musculature under sterile prep and drape using local anesthetic. MEDICATIONS INJECTED: A total of 40 mg of Depo-Medrol plus total of 18 mL of 0.25% bupivacaine after negative aspiration of each injection site. Condition on discharge was stable. The patient tolerated the procedure well, had no complications. JANNETH TAYLOR MD DR: MIHAELA/carmen JOB#: [id number] / [id number]
== END | disposition home or self-care (01) ==
LOC: PNCL 10:52
PROVIDERS: ATTEND Anesthesiology
DX: M79.18 Myalgia, other site (principal); M48.061 Spinal stenosis, lumbar region without neurogenic claudication; M96.1 Postlaminectomy syndrome, not elsewhere classified; M50.10 Cervical disc disorder with radiculopathy, unspecified cervical region; Z88.0 Allergy status to penicillin; Z88.5 Allergy status to narcotic agent
CPT/HCPCS: 20553; J1030; J3490

== ENCOUNTER → 2019-02-03 | Outpatient (CLI) | payer MEDICARE, OTHER ==
[2014-04-24 12:35] VITALS: BP 132/68
--- NOTE | 2019-02-03 16:00 | PAIN ---
DATE OF SERVICE: 02/03/2019 DIAGNOSES: 1. Myofascial pain. 2. Lumbar radiculopathy with lumbar spinal stenosis and post-lumbar laminectomy syndrome. 3. Cervical radiculopathy with cervical degenerative disk disease. HISTORY OF PRESENT ILLNESS: The patient is a 73-year-old female who returns for followup status post trigger point injections, last seen 12/11/2018. The patient did very well with this, about 50% improvement for several weeks following the injections. The patient reports she has been more active. She has been helping her daughter do some moving, also has had an incident where she had a neighbor she was helping [place] who grabbed on to her and strained her back to some degree as well in her left upper extremity. The patient reports otherwise doing fairly well, but the pain is returning now, and it is very tight and tender in the base of the neck and shoulders, upper back, mid back as well as the low back, some radiation to the lower extremities as well. The patient reports it has become more constant, aching, dull, tight and shooting. The patient reports that the pain is 10 on scale of 10 at average just last week, 10 at its worst and 8 at its least, and it is 10 today. The patient reports no new motor or sensory deficits, no new changes. PHYSICAL EXAMINATION: VITAL SIGNS: The patient's blood pressure 145/74, pulse 63, respirations 16, temperature 97.9 degrees Fahrenheit, weight is 159 pounds. GENERAL: The patient is awake, alert, oriented, appropriate, very pleasant demeanor. HEENT: Head is normocephalic, atraumatic. Extraocular movements are intact and symmetrical. Oral cavity: Mucous membranes moist and pink. Dentition is intact. NECK: Shows anterior throat supple without palpable lymphadenopathy noted. Swallow reflex is symmetrical. CHEST: Shows normal with inspection. Breath sounds clear to auscultation bilaterally. HEART: Shows S1, S2 clear. No murmurs auscultated. ABDOMEN: Soft, nontender, nondistended. No palpable organomegaly is noted. No rebound or guarding demonstrated. BACK: Shows spine grossly in the midline. Normal appearing thoracic kyphosis and lumbar lordotic curvature. Lumbar paraspinous muscle shows symmetrical on inspection and palpation shows some moderate tenderness diffusely. In the lumbar paraspinous muscles, there is very firm rope-like musculature, more on the right than the left in the lumbar paraspinous muscles, very firm, very tender, and consistent with areas of trigger point musculature. This is true into the thoracic paraspinous musculature, again more on the right than the left, as well as into the trapezius musculature and the cervical paraspinous muscles, very firm, especially in the upper cervical paraspinous distribution with very firm rope-like musculature consistent with trigger point areas of muscles bilaterally. The patient has good rotational motion of cervical spine, both laterally as well as extension and flexion. Lumbar spine shows good rotation as well laterally as well as extension and flexion without significant increase in pain. The patient's lower extremities show deep tendon reflexes 1+ in the patellar and tendo calcaneus tendons. Motor exam is strong with approximately 5/5 dorsiflexion, extension and equal. Peripheral pulses are 1+ posterior tibia. No peripheral edema is noted bilaterally. Options were discussed with the patient. The patient's old chart was reviewed as her current medication regimen updated. Current review of systems updated today as well. We will proceed with trigger point injections of the identified musculature. Risks were discussed including but not limited to bleeding, infection, possibility of intravascular injection sequelae, pneumothorax, side effects of steroid medication as well as poor results regarding pain control. The patient understands and wished to proceed. The patient will return to clinic in approximately 2 weeks for followup. She was counseled on return appointment, activity level and side effects to be aware of. DIAGNOSIS: Myofascial pain. PROCEDURE: Trigger point injections, bilateral cervical paraspinous musculature, bilateral trapezius musculature, bilateral thoracic paraspinous musculature, bilateral lumbar paraspinous musculature under sterile prep and drape using local anesthetic. MEDICATION INJECTED: A total of 16 mL of 0.25% bupivacaine after negative aspiration at each injection site as well as 40 mg total Depo-Medrol. CONDITION AT DISCHARGE: Stable. The patient tolerated the procedure well, had no complications. JANNETH TAYLOR MD DR: MIHAELA/carmen JOB#: [id number] / [id number]
== END ==
LOC: PNCL 08:04
PROVIDERS: ATTEND Anesthesiology
DX: M79.18 Myalgia, other site (principal); M51.16 Intervertebral disc disorders with radiculopathy, lumbar region; M96.1 Postlaminectomy syndrome, not elsewhere classified; M50.10 Cervical disc disorder with radiculopathy, unspecified cervical region
CPT/HCPCS: 20553; J1030; J3490

== ENCOUNTER → 2019-09-24 | Outpatient (CLI) | payer MEDICARE, OTHER ==
[2014-04-24 12:35] VITALS: BP 132/68
[~2019-09-24] MED LIST changes: +ASCO-219 PO; -ASCO500T PO; -CETI10TA22 PO; +CETI10TA24 PO; +POTA20TA4 PO; -POTA20TA82 PO
--- NOTE | 2019-09-24 08:50 | PAIN ---
DATE OF SERVICE: 09/24/2019 PROGRESS NOTE FOR PAIN CLINIC DIAGNOSES: 1. Myofascial pain. 2. Lumbar radiculopathy with lumbar spinal stenosis, lumbar post-laminectomy syndrome. 3. Cervical radiculopathy with cervical degenerative disk disease. HISTORY OF PRESENT ILLNESS: The patient is a 74-year-old female, who returns for followup status post trigger point injections, last seen 02/03/2019. The patient did very well with trigger point injections into the cervical paraspinous musculature, trapezius, thoracic and lumbar distributions. The patient reports she has been in [place] helping her daughter with her grandchild and has returned now for some followups with her gallbladder, previous surgery and duct stone. 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 The patient reports her pain is increased in the base of the neck and shoulders, upper extremities, worse with activity, helping with her grandchild, awakening her from sleep about every 3-5 hours or so where initially she is doing quite a bit better. She did very well with almost pain free situation for about a month after the injections and now has returned about a 50% level in the neck and shoulders, upper back, mid back, low back and into the right hip. The patient reports that 10 on a scale of 10, it is worst over the past week, 10 on average, 9 at its least and is a 10 today. The patient reports it is aching, radiating, becoming more constant at base of neck and shoulders, especially the left arm, upper back, mid back, low back and in the right hip. The patient reports no loss of motor function, no bowel or bladder incontinence or other complaints. PHYSICAL EXAMINATION: VITAL SIGNS: The patient's blood pressure is 140/65, pulse 74, respirations 18, temperature 97.9 degrees Fahrenheit, weight is 145 pounds. GENERAL: The patient is awake, alert, oriented, appropriate, very pleasant demeanor. HEENT: Shows normocephalic, atraumatic. Extraocular movements are intact and symmetrical. Oral cavity: Mucous membranes moist and pink. Dentition is intact. NECK: Shows anterior throat supple without palpable lymphadenopathy noted. Swallow reflex symmetrical. CHEST: Shows normal on inspection. Breath sounds are clear bilaterally. HEART: Shows S1, S2 clear. No murmurs auscultated. ABDOMEN: Soft, nontender, nondistended. No palpable organomegaly is noted. No rebound or guarding demonstrated. BACK: Shows spine grossly in the midline. Normal appearing thoracic kyphosis and lumbar lordotic curvatures, slightly flattened with well-healed surgical scar noted. Cervical paraspinous muscle shows symmetrical on inspection, on palpation shows some significant tenderness and very firm rope-like musculature in the inferior aspect of the cervical paraspinous muscles as well as into the superior medial trapezius with very firm rope-like musculature, very tender on the left compared to the right, but present bilaterally consistent with areas of trigger point musculature. This is true into the thoracic paraspinous musculature, again worse on the left than the right in the middle, upper aspect of the thoracic paraspinous muscles and then into the lumbar distribution, lumbar paraspinous muscles are symmetrical, but with palpation, very firm rope-like musculature, again worse on the right side than the left in the lumbar distribution and into the right superior gluteus as well, again without radiation, but with significant tenderness with palpation. EXTREMITIES: The patient's upper extremities show deep tendon reflexes 2+ in the biceps and triceps tendons. Motor exam is strong with slate splitting supervisor strength rated at 5/5 and equal. Lower extremities show deep tendon reflexes 1+ in the patellar and tendo calcaneus tendons. Motor exam is strong with dorsiflexion, extension, quadriceps and hamstring flexion rated at 5/5 as well. Peripheral pulses are 2+ radial, 1+ posterior tibia. No peripheral edema is noted upper or lower extremities. Options were discussed with the patient. The patient's old chart was reviewed as her current medication regimen updated. Current review of systems updated today as well. We will proceed with trigger point injections of the identified musculature. Risks were discussed including but not limited to bleeding, infection, possibility of intravascular injection sequelae, spread of local anesthetic and numbness, pneumothorax, side effects of steroid medication and poor results regarding pain control. The patient understands and wished to proceed. The patient will return to clinic in approximately 2 weeks for followup. She was counseled on return appointment, activity level and side effects to be aware of. DIAGNOSIS: Myofascial pain. PROCEDURE: Trigger point injections, bilateral cervical paraspinous musculature, bilateral trapezius musculature, bilateral thoracic paraspinous musculature, bilateral lumbar paraspinous musculature under sterile prep and drape using local anesthetic. MEDICATION INJECTED: A total of 12 mL of 0.25% bupivacaine after negative aspiration at each injection site. A total of 40 mg Depo-Medrol. CONDITION AT DISCHARGE: Stable. The patient tolerated procedure well, had no complications. JANNETH TAYLOR MD DR: MIHAELA/carmen JOB#: [id number] / [id number]
== END ==
LOC: PNCL 08:02
PROVIDERS: ATTEND Anesthesiology
DX: M79.18 Myalgia, other site (principal); M96.1 Postlaminectomy syndrome, not elsewhere classified; M51.16 Intervertebral disc disorders with radiculopathy, lumbar region; M10.9 Gout, unspecified; M48.061 Spinal stenosis, lumbar region without neurogenic claudication
CPT/HCPCS: 20553; J1030; J3490

== ENCOUNTER → 2020-04-19 | Outpatient (CLI) | payer MEDICARE, OTHER ==
[2014-04-24 12:35] VITALS: BP 132/68
[~2020-04-19] MED LIST changes: -ASCO-219 PO; +ASCO500T53 PO; -CETI10TA24 PO; +CETI10TA74 PO
--- NOTE | 2020-04-19 10:45 | PDOC ---
Progress Note - Pain Clinic Date of Service: DOS: DATE: 04/19/20 TIME: 10:39 Diagnosis: Dx: Myofascial pain Lumbar radiculopathy with lumbar spinal stenosis lumbar postlaminectomy syndrome Cervical radiculopathy with cervical degenerative disc disease History or Present Illness: HPI: 74-year-old female returns follow-up status post trigger point injections last seen September 24, 2019. Patient ports he did very well without 80% improvement for about 2 months or more with the decrease in pain base the neck shoulders upper back mid back low back now returning specially on the right side with some pain in the right and left hip patient which is worse with walking standing changing positions awaken her from sleep at night occasionally up every 6-7 hours patient reports that beginning to return and mainly in the right side but also on the left in the low back right side and the shoulder. Patient reports is a 9 on a scale of 10 is worst 9 on average and a 5 at its least is a 9 today. Patient reports is aching and cramping radiating coming more constant with activity. Patient reports initially she was much better with doing household activities try with greater ease and comfort and now the pain is returned as noted. Patient reports no new motor or sensory deficits or other complaints. Physical Exam: VS: Pressure is 130/68 pulse 70 respiration 16 temperature 90.0 F weight is 148 pounds PE: PHYSICAL EXAMINATION: GENERAL: The patient is awake, alert, oriented, appropriate, very pleasant demeanor HEENT: Shows normocephalic, atraumatic. Extraocular movements are intact and symmetrical. Oral cavity: Mucous membranes moist and pink. NECK: Shows anterior throat supple without palpable lymphadenopathy noted. Swallow reflex symmetrical. CHEST: Shows normal on inspection. Breath sounds are clear bilaterally. HEART: Shows S1, S2 clear. No murmurs auscultated. ABDOMEN: Soft, nontender, nondistended. No palpable organomegaly is noted. No rebound or guarding demonstrated. BACK: Shows spine grossly in the midline. Normal-appearing cervical lordotic curvature cervical paraspinous muscles show symmetrical on inspection with palpation some very firm ropelike musculature in the middle and lower cervical paraspinous muscles more into the superior medial trapezius as well very firm ropelike with very consistent with trigger point areas tender without radiation. Patient has good rotation motion cervical spine both laterally as well as full extension full forward flexion without significant difficulty. There is slightly increased thoracic kyphosis, with multiple areas in the mid rhomboid and upper thoracic paraspinous posture very firm ropelike musculature consistent with trigger point areas of muscle again without radiation. Some minor f lattening of the lumbar lordotic curvature. Lumbar paraspinous muscles show symmetrical on inspection, on palpation shows some moderate tenderness diffusely throughout the upper, middle and lower distribution of the paraspinous muscles bilaterally and also into the lower thoracic paraspinous musculature, firm and tender with multiple areas in the lumbar paraspinous posture a very firm ropelike musculature consistent with trigger point areas of muscle but without specific radiation. The patient has good rotational motion of the lumbar spine, both laterally as well as extension and flexion without significant difficulty. No tenderness over the spinous processes, sacrum or sacroiliac regions. EXTREMITIES: Lower extremities show deep tendon reflexes 1+ in the patellar and tendo calcaneus tendons. Motor exam is 5 on a scale of 5 with right dorsiflexion, extension, quadriceps and hamstring flexion and 5/5 on the left. Peripheral pulses are 1+ posterior tibial. No peripheral edema is noted bilaterally. Lower extremities are warm and dry to touch, equal in color and appearance. SKIN: Shows warm and dry, good turgor. No edema. No sores, rashes throughout. Procedure: Procedure: Options were discussed with the patient. Patient chart was reviewed as her current medication regimen updated current review of systems updated today as well. We will proceed with trigger point injections of the identified areas.. Risks are discussed including but not limited to bleeding infection possibility of intravascular injection sequelae spread of local anesthetic and numbness pneumothorax side effects steroid medication and portals chronic pain control. Patient understands wished to proceed. Return to clinic in approximately 2 weeks for follow-up. Patient was counseled as to return appointment activity level and side effects to be aware of. Medication Injected: Med Injected: Under sterile prep and drape patient in sitting position the cervical paraspinous posterior trapezius musculature thoracic paraspinous musculature and lumbar paraspinous pressure was sterilely prepped and draped and as trigger points were identified were injected using 25-gauge needle total of 15 cc 0.25% Vivacaine total of 40 mg Depo-Medrol after negative aspiration each injection site. Patient tolerated procedure well had no immediate complications. Condition at Discharge: Condition at Discharge: Condition at discharge is stable patient tolerated seizure well had no complications. JANNETH TAYLOR MD Apr 19, 2020 10:45
== END | disposition home or self-care (01) ==
LOC: PNCL 09:59
PROVIDERS: ATTEND Anesthesiology
DX: M48.061 Spinal stenosis, lumbar region without neurogenic claudication (principal); M50.10 Cervical disc disorder with radiculopathy, unspecified cervical region; M96.1 Postlaminectomy syndrome, not elsewhere classified; M79.18 Myalgia, other site; I10 Essential (primary) hypertension; Z88.0 Allergy status to penicillin; Z88.8 Allergy status to other drugs, medicaments and biological substances; Z79.82 Long term (current) use of aspirin; Z79.899 Other long term (current) drug therapy; Z87.891 Personal history of nicotine dependence; Z72.89 Other problems related to lifestyle
CPT/HCPCS: 20553; J1030; J3490

== ENCOUNTER → 2020-06-21 | Outpatient (CLI) | payer MEDICARE, OTHER ==
[2014-04-24 12:35] VITALS: BP 132/68
[~2020-06-21] MED LIST changes: -ALEN70TA6 PO; +ALEN70TA60 PO; +AMLO-187 PO; -AMLO10TA8 PO
--- NOTE | 2020-06-21 08:54 | PDOC ---
Progress Note - Pain Clinic Date of Service: DOS: DATE: 06/21/20 TIME: 08:49 Diagnosis: Dx: Myofascial pain Lumbar radiculopathy with lumbar spinal stenosis lumbar postlaminectomy syndrome Cervical radiculopathy with cervical degenerative disc disease History or Present Illness: HPI: 75-year-old female returns for follow-up status post trigger point injections last seen April 19, 2020. Patient reports she did very well with about a 2% improvement overall after the injections pain returning over the past week however the base the neck of her neck shoulders upper back mid back low back into the hips to some extent. Patient report also some knee pain in the right knee when walking when the pain is at its worst in her back. Patient reports the pain is aching and cramping radiating constant in the neck and shoulders upper back mid back low back patient rates pain is a 10 on scale 10 is worse over the past week 9 on average 7 its least and is a 9 today. Patient reports no new motor or sensory deficits no new bowel or bladder incontinence or other complaints. Physical Exam: VS: Blood pressure is 138/66 pulse 75 respirations 18 temperature 90.1 F height 5 feet 2 inches weight is 152 pounds PE: PHYSICAL EXAMINATION: GENERAL: The patient is awake, alert, oriented, appropriate, very pleasant in demeanor HEENT: Shows normocephalic, atraumatic. Extraocular movements are intact and symmetrical. Oral cavity: Mucous membranes moist and pink. NECK: Shows anterior throat supple without palpable lymphadenopathy noted. Swallow reflex symmetrical. CHEST: Shows normal on inspection. Breath sounds are clear bilaterally. HEART: Shows S1, S2 clear. No murmurs auscultated. ABDOMEN: Soft, nontender, nondistended, obese. No palpable organomegaly is noted. No rebound or guarding demonstrated. BACK: Shows spine grossly in the midline. Normal-appearing cervical lordotic curvature. There is slightly increased thoracic kyphosis, some minor flattening of the lumbar lordotic curvature. Lumbar paraspinous muscles show symmetrical on inspection. With palpation patient shows significant tenderness in the bilateral cervical paraspinous posterior mainly in the middle and lower distribution also superior medial trapezius with very firm ropelike musculature consistent with trigger point areas of musculature without specific radiation however patient shows this as well in the thoracic paraspinous musculature greater on the right than the left very firm ropelike musculature consistent with trigger point areas but without radiation also into the middle and lower thoracic and into the lumbar paraspinous muscles are greater on the right than the left as well very firm ropelike musculature to moderate to significant tenderness but without radiation. The patient has good rotational motion of the lumbar spine, both laterally as well as extension and flexion without significant difficulty. No tenderness over the spinous processes, sacrum or sacroiliac regions. EXTREMITIES: Lower extremities show deep tendon reflexes 1+ in the patellar and tendo calcaneus tendons. Motor exam is 5 on a scale of 5 with right dorsiflexion, extension, quadriceps and hamstring flexion and 5/5 on the left. Peripheral pulses are 1+ posterior tibial. No peripheral edema is noted bilaterally. Lower extremities are warm and dry to touch, equal in color and appearance. SKIN: Shows warm and dry, good turgor. No edema. No sores, rashes or bruising throughout. Procedure: Procedure: Options were discussed with the patient. Patient chart was reviewed as her current medication regimen updated current review of systems updated today as well. We will proceed with trigger point injections of the identified musculature risks are discussed including but not limited to bleeding infection possibility of intravascular injection sequelae, pneumothorax spread of local anesthetic and numbness side effects of steroid medication and poor results chronic pain control. Patient understands wished to proceed. Patient will return to clinic in approximate 2 weeks for follow-up with counselors return appointment activity level and side effects to be aware of. Medication Injected: Med Injected: Under sterile prep and drape patient in sitting position trigger point areas were identified in the bilateral cervical paraspinous posterior bilateral trapezius musculature bilateral thoracic paraspinous muscle and bilateral lumbar paraspinous musculature using 25-gauge needle 1 cc of 0.25% bupivacaine was injected with a total of 40 mg Depo-Medrol and 14 cc of 0.25 bupivacaine for 14 trigger point area injections. Patient tolerated procedure well had no complications. Condition at Discharge: Condition at Discharge: Condition at discharge is stable, patient tolerated procedure well and had no complications. JANNETH TAYLOR MD Jun 21, 2020 08:54
== END | disposition home or self-care (01) ==
LOC: PNCL 08:19
PROVIDERS: ATTEND Anesthesiology
DX: M48.061 Spinal stenosis, lumbar region without neurogenic claudication (principal); M96.1 Postlaminectomy syndrome, not elsewhere classified; M50.10 Cervical disc disorder with radiculopathy, unspecified cervical region; M79.18 Myalgia, other site; E78.00 Pure hypercholesterolemia, unspecified; I48.91 Unspecified atrial fibrillation; I10 Essential (primary) hypertension; M19.90 Unspecified osteoarthritis, unspecified site; Z90.49 Acquired absence of other specified parts of digestive tract; Z98.890 Other specified postprocedural states; Z79.899 Other long term (current) drug therapy; Z72.89 Other problems related to lifestyle; Z87.891 Personal history of nicotine dependence; Z88.0 Allergy status to penicillin; Z88.6 Allergy status to analgesic agent
CPT/HCPCS: 20553; J1030; J3490

== ENCOUNTER → 2020-10-09 | Outpatient (CLI) | payer MEDICARE, OTHER ==
[2014-04-24 12:35] VITALS: BP 132/68
[~2020-10-09] MED LIST changes: -ALEN70TA60 PO; +ALEN70TA71 PO; -BUPIVACAINE MPF 0.25% 10 ML VIAL. ONE; +BUPIVACAINE MPF 0.25% 30 ML VIAL. ONE
--- NOTE | 2020-10-09 09:12 | PDOC ---
Progress Note - Pain Clinic Date of Service: DOS: DATE: 10/09/20 TIME: 09:07 Diagnosis: Dx: Myofascial pain Lumbar radiculopathy with lumbar spinal stenosis and lumbar postlaminectomy syndrome Cervical radiculopathy with cervical degenerative disc disease History or Present Illness: HPI: 75-year-old female returns for follow-up status post trigger point injections last seen June 21, 2020. Patient reports did very well for about 3 months about 60% improvement overall with significant decrease in pain in the neck upper back shoulders mid back low back now returning in all these regions with a sharp stinging burning cramping sometimes burning more in the neck and the shoulders and in the upper back also on the left side of the low back greater than the right patient reports 10 on scale 10 is worse over the past week 9 on average 7 its least visit 8 today patient reports radiating into the mid back and low back worse with repetitive motions walking standing change positions beginning to awaken her from sleep at night but generally she sleeps well without disturbance. Patient reports initially she was doing much better with walking distance doing household activities travel with greater ease and comfort now it is beginning to affect these activities fairly significantly. Patient reports no loss of motor function no bowel or bladder incontinence. Physical Exam: VS: Blood pressure is 107 pulse 81 respirations 18 temperature is 98.2 F height is 5 feet 2 inches weight 159 pounds PE: PHYSICAL EXAMINATION: GENERAL: The patient is awake, alert, oriented, appropriate, very pleasant demeanor HEENT: Shows normocephalic, atraumatic. Extraocular movements are intact and symmetrical. NECK: Shows anterior throat supple without palpable lymphadenopathy noted. Swallow reflex symmetrical. CHEST: Shows normal on inspection. Breath sounds are clear bilaterally, no rales or rhonchi bilaterally. HEART: Shows S1, S2 clear. No murmurs auscultated. ABDOMEN: Soft, nontender, nondistended, obese. No palpable organomegaly is noted. BACK: Shows spine grossly in the midline. Normal-appearing cervical lordotic curvature. Cervical paraspinous muscles show symmetrical inspection on palpation some very firm ropelike musculature bilaterally in the superior middle and inferior aspect of the paraspinous musculature very firm consistent with trigger point areas of musculature tender with palpation without specific radiation. This is true into the superior medial trapezius as well as the lateral trapezius worse on the right than the left with very firm ropelike musculature consistent with trigger point areas as well. There is slightly increased thoracic kyphosis, some minor flattening of the lumbar lordotic curvature. Lumbar paraspinous muscles show symmetrical on inspection, on palpation shows some moderate tenderness diffusely throughout the upper, middle and lower distribution of the paraspinous muscles bilaterally and also into the lower thoracic paraspinous musculature, firm and tender consistent with trigger point areas of musculature. The patient has good rotational motion of the lumbar spine, both laterally as well as extension and flexion without significant difficulty. No tenderness over the spinous processes, sacrum or sacroiliac regions. EXTREMITIES: Lower extremities show deep tendon reflexes 1+ in the patellar and tendo calcaneus tendons. Motor exam is 5 on a scale of 5 with right dorsiflexion, extension, quadriceps and hamstring flexion and 5/5 on the left. Peripheral pulses are 1+ posterior tibial. No peripheral edema is noted bilaterally. Lower extremities are warm and dry to touch, equal in color and ap pearance. SKIN: Shows warm and dry, good turgor. No edema. No sores, rashes or bruising throughout. Procedure: Procedure: Options were discussed with the patient. Patient chart reviews her current medication regimen updated current review of systems updated today as well. We will proceed with trigger point injections of the identified musculature. Risks are discussed including but not limited to bleeding infection possibility of intravascular injection sequelae spread local acetic numbness pneumothorax side effects steroid medication and portal scarring pain control. Patient understands wished to proceed. Patient will return to the clinic in approximately 4 weeks for follow-up, was counseled as to return appointment a ctivity level and side effects to be aware of. Medication Injected: Med Injected: Under sterile prep and drape trigger point areas were identified and injected using 25-gauge needle total of 14 cc 0.25% bupivacaine and total of 40 mg Depo- Medrol after negative aspiration each injection site. Trigger points injected in the bilateral cervical paraspinous musculature bilateral trapezius musculature bilateral thoracic paraspinous posterior and bilateral lumbar paraspinous musculature. Patient tolerated procedure well had no complications. Condition at Discharge: Condition at Discharge: Condition at discharge stable, patient alert procedure well and had no complications. JANNETH TAYLOR MD Oct 09, 2020 09:12
--- NOTE | 2020-10-09 09:12 | PDOC4 ---
PROCEDURE Procedure Patient was consented for trigger point injections. Risk were discussed inc luding but not limited to bleeding infection possibility of intravascular injection sequelae spread local anesthetic and numbness pneumothorax side effects of steroid medication and portal scarring pain control. Patient understands wished to proceed. Under sterile prep and drape trigger point areas were identified and injected using 25-gauge needle total of 14 cc 0.25% bupivacaine and total of 40 mg Depo- Medrol after negative aspiration each injection site. Trigger points injected in the bilateral cervical paraspinous musculature bilateral trapezius musculature bilateral thoracic paraspinous posterior and bilateral lumbar paraspinous musculature. Patient tolerated procedure well had no complications. JANNETH TAYLOR MD Oct 09, 2020 09:12
== END | disposition home or self-care (01) ==
LOC: PNCL 08:29
PROVIDERS: ATTEND Anesthesiology
DX: M48.061 Spinal stenosis, lumbar region without neurogenic claudication (principal); M79.10 Myalgia, unspecified site; M50.10 Cervical disc disorder with radiculopathy, unspecified cervical region; M96.1 Postlaminectomy syndrome, not elsewhere classified; E78.00 Pure hypercholesterolemia, unspecified; I10 Essential (primary) hypertension; I48.91 Unspecified atrial fibrillation; K21.9 Gastro-esophageal reflux disease without esophagitis; M19.90 Unspecified osteoarthritis, unspecified site; Z90.49 Acquired absence of other specified parts of digestive tract; Z98.890 Other specified postprocedural states; Z79.899 Other long term (current) drug therapy; Z87.891 Personal history of nicotine dependence; Z72.89 Other problems related to lifestyle; Z88.0 Allergy status to penicillin; Z88.8 Allergy status to other drugs, medicaments and biological substances
CPT/HCPCS: 20553; J1030; J3490

== ENCOUNTER → 2020-12-11 | Outpatient (CLI) | payer MEDICARE, OTHER ==
[2014-04-24 12:35] VITALS: BP 132/68
[~2020-12-11] MED LIST changes: -DRON400T PO; +DRON400T6 PO; +FAMO10TA26 PO; +FEXO60TA25 PO; +FLUT9.9S NS; +METO25TA4 PO
--- NOTE | 2020-12-11 09:53 | PDOC ---
Progress Note - Pain Clinic Date of Service: DOS: DATE: 12/11/20 TIME: 09:48 Diagnosis: Dx: Myofascial pain Lumbar radiculopathy with lumbar spinal stenosis and lumbar postlaminectomy syndrome Cervical radiculopathy with cervical degenerative disc disease History or Present Illness: HPI: 75-year-old female returns for follow-up status post trigger point injections most recently October 09, 2020 patient reports he did very well with about 75% improvement then she had a cardiac ablation done which she was forced to lay supine for about 24 hours and this is exacerbated some of the pain in the base the neck and shoulders more on the left than the right upper back mid back low back especially on the left side patient reports is a 10 on scale 10 is worse over the past week 10 on average and 9 its least is a 10 today patient reports is worse with moving changing positions to be disturbing sleep about once every 5 hours patient reports no new motor or sensory deficits but significant pain described as constant aching tight and stabbing also some cramping pain in the shoulders neck and upper and lower back. Patient reports no other deficits no new bowel or bladder incontinence or other complaints. Physical Exam: VS: Blood pressure is 150/70 pulse 65 respirations 16 temperature 98.0 F height is 5 foot 2 inches weight is 163 pounds PE: PHYSICAL EXAMINATION: GENERAL: The patient is awake, alert, oriented, appropriate, very pleasant demeanor HEENT: Shows normocephalic, atraumatic. Extraocular movements are intact and symmetrical. NECK: Shows anterior throat supple without palpable lymphadenopathy noted. Sw allow reflex symmetrical. CHEST: Shows normal on inspection. Breath sounds are clear bilaterally, no rales or rhonchi. HEART: Shows S1, S2 clear. No murmurs auscultated. ABDOMEN: Soft, nontender, nondistended, obese. No palpable organomegaly is noted. No rebound or guarding demonstrated. BACK: Shows spine grossly in the midline. Normal-appearing cervical lordotic curvature. Cervical paraspinous muscles show symmetrical inspection with palpation some very firm ropelike musculature in the middle and lower distribution the paraspinous muscles consistent with trigger point areas of musculature and into the superior medial trapezius bilaterally as well but without specific radiation on palpation. There is slightly increased thoracic kyphosis, some minor flattening of the lumbar lordotic curvature. Lumbar paraspinous muscles show symmetrical on inspection, on palpation shows some m oderate tenderness diffusely throughout the upper, middle and lower distribution of the paraspinous muscles, very firm ropelike musculature consistent with trigger point areas of musculature. The patient has good rotational motion of the lumbar spine, both laterally as well as extension and flexion without significant difficulty. No tenderness over the spinous processes, sacrum or sacroiliac regions. EXTREMITIES: Lower extremities show deep tendon reflexes 1+ in the patellar and tendo calcaneus tendons. Motor exam is 5 on a scale of 5 with right dorsiflexion, extension, quadriceps and hamstring flexion and 5/5 on the left. Peripheral pulses are 1+ posterior tibial. No peripheral edema is noted bilaterally. Lower extremities are warm and dry. SKIN: Shows warm and dry, good turgor. No edema. No sores, rashes or bruising throughout. Procedure: Procedure: Options were discussed with the patient. Patient's old chart was reviewed as her current medication regimen updated current review of systems updated today as well. We will proceed with trigger point injection of the identified musculature throughout the cervical paraspinous musculature thoracic paraspinous muscles or trapezius musculature and lumbar paraspinous musculature bilaterally. Risk discussed including but not limited to bleeding infection possibility of intravascular injection sequelae spread local anesthetic numbness pneumothorax side effects of steroid medication and portal scarring pain control. Patient understands wished to proceed. Patient return to clinic in approximate 4 weeks for follow-up was counseled as to return appointment activity level and side effects to be aware of. Medication Injected: Med Injected: Patient sitting position under sterile prep and drape identified areas of musculature in the cervical paraspinous posterior trapezius musculature thoracic paraspinous musculature lumbar paraspinous musculature, were injected using a 25-gauge 1/2 inch needle after negative aspiration each injection site for a total of 12 cc of 0.25% bupivacaine and total of 40 mg Depo-Medrol. Patient tolerated procedure well had no complications. Condition at Discharge: Condition at Discharge: Condition at discharge is stable, patient tolerated seizure well and had no complications. JANNETH TAYLOR MD December 11, 2020 09:53
== END | disposition home or self-care (01) ==
LOC: PNCL 09:06
PROVIDERS: ATTEND Anesthesiology
DX: M79.18 Myalgia, other site (principal); M48.061 Spinal stenosis, lumbar region without neurogenic claudication; M96.1 Postlaminectomy syndrome, not elsewhere classified; M50.10 Cervical disc disorder with radiculopathy, unspecified cervical region; E78.00 Pure hypercholesterolemia, unspecified; I48.91 Unspecified atrial fibrillation; I10 Essential (primary) hypertension; K21.9 Gastro-esophageal reflux disease without esophagitis; M19.90 Unspecified osteoarthritis, unspecified site; D64.9 Anemia, unspecified; Z88.0 Allergy status to penicillin; Z88.5 Allergy status to narcotic agent; Z98.41 Cataract extraction status, right eye; Z95.1 Presence of aortocoronary bypass graft; Z86.718 Personal history of other venous thrombosis and embolism; Z90.49 Acquired absence of other specified parts of digestive tract; Z98.890 Other specified postprocedural states; Z98.61 Coronary angioplasty status; Z72.89 Other problems related to lifestyle
CPT/HCPCS: 20553; J1030; J3490

== ENCOUNTER → 2021-03-05 | Outpatient (CLI) | payer MEDICARE, OTHER ==
[2014-04-24 12:35] VITALS: BP 132/68
[~2021-03-05] MED LIST changes: -BUPIVACAINE MPF 0.25% 30 ML VIAL. ONE; +CHOL20002 PO; +CYCL5TAB PO; +FERR325T14 PO; +POTA10TA12 PO; +VIT1TABL34 PO; +ZOLP5TAB5 PO; -methylPREDNISolone ACETATE 40 MG/ML VIAL. ONE
[2021-03-05 09:25] LABS: ALBUMIN 3.6 g/dL (3.4-5.0); CALCIUM 9.6 mg/dL (8.5-10.1); CREATININE 0.8 mg/dL (0.6-1.0); GFR 69.7; POTASSIUM 4.4 mmol/L (3.5-5.1)
[2021-03-05 09:28] LABS: BASO # 0.1 x10^3/uL (0.0-0.2); BASO % 1 % (0-3); EOS # 0.1 x10^3/uL (0.0-0.7); EOS % 2 % (0-3); HEMATOCRIT 38.8 % (36.0-47.0); HEMOGLOBIN 13.2 g/dL (12.0-15.5); LYMPH % 15 % (24-48); MEAN CORPUSCULAR HEMOGLOBIN 33 pg (25-35); MEAN CORPUSCULAR HGB CONC 34 g/dL (31-37); MEAN CORPUSCULAR VOLUME 96 fL (79-100); MONO # 0.6 x10^3/uL (0.0-1.1); MONO % 9 % (0-9); NEUT % 74 % (31-73); PLATELET COUNT 180 x10^3/uL (140-400); RED BLOOD COUNT 4.05 x10^6/uL (3.50-5.40); RED CELL DISTRIBUTION WIDTH 14.6 % (11.5-14.5); WHITE BLOOD COUNT 6.8 x10^3/uL (4.0-11.0)
[2021-03-05 09:34] LABS: PROTHROMBIN TIME PATIENT 15.3 SEC (11.7-14.0)
--- NOTE | 2021-03-05 13:23 | RAD ---
EXAM: Chest, 2 views. HISTORY: Hypertension. Preoperative evaluation. COMPARISON: None. FINDINGS: 2 views of the chest are obtained. There is no infiltrate, pleural effusion or pneumothorax . There is a small posterior left diaphragmatic hernia. There is evidence of prior CABG. There is a c ardiac event monitor overlying the left thorax. IMPRESSION: No acute pulmonary finding. Electronically signed by: Courtney Red MD (03/05/2021 1:20 PM) [id number]
[2021-03-06 02:08] LABS: HEMOGLOBIN A1C 5.7 % (4.8-5.6)
== END ==
LOC: SURGPAT 12:11
PROVIDERS: ATTEND Orthopaedic Surgery
DX: Z01.818 Encounter for other preprocedural examination (principal); I10 Essential (primary) hypertension; I48.91 Unspecified atrial fibrillation; E78.00 Pure hypercholesterolemia, unspecified; K21.9 Gastro-esophageal reflux disease without esophagitis; M19.90 Unspecified osteoarthritis, unspecified site; F17.210 Nicotine dependence, cigarettes, uncomplicated; I73.9 Peripheral vascular disease, unspecified; Z86.718 Personal history of other venous thrombosis and embolism; Z95.1 Presence of aortocoronary bypass graft; Z98.41 Cataract extraction status, right eye; Z90.49 Acquired absence of other specified parts of digestive tract; Z98.890 Other specified postprocedural states
CPT/HCPCS: 36415; 71046; 80048; 82040; 82306; 83036; 85025; 85610; 85651; 85730; 87641

== ENCOUNTER 2021-03-27 17:14 | Emergency (ER) | payer MEDICARE, OTHER ==
[2021-03-22 16:15] VITALS: BP 116/63
[~2021-03-27 17:14] MED LIST changes: +OXYC5CAP PO
== END 2021-03-27 17:54 | disposition left against medical advice (07) ==
LOC: ER 17:14
DX: G89.18 Other acute postprocedural pain (principal); Z53.21 Procedure and treatment not carried out due to patient leaving prior to being seen by health care provider

== ENCOUNTER → 2021-06-26 | Outpatient (CLI) | payer MEDICARE, OTHER ==
[2021-03-22 16:15] VITALS: BP 116/63
[~2021-06-26] MED LIST changes: +BUPIVACAINE MPF 0.25% 10 ML VIAL. ONE; +methylPREDNISolone ACETATE 40 MG/ML VIAL. ONE
--- NOTE | 2021-06-26 16:53 | PDOC ---
Progress Note - Pain Clinic Date of Service: DOS: DATE: 06/26/21 TIME: 16:45 Diagnosis: Dx: Myofascial pain Lumbar radiculopathy with lumbar postlaminectomy syndrome with lumbar spinal stenosis Cervical radiculopathy with cervical degenerative disc disease History or Present Illness: HPI: 76-year-old female returns for follow-up last seen December 11, 2020 patient did very well after trigger point injections for several months following the injections the pain is beginning to return however patient reports has had new pain in the lower back more on the right side than the left but present bilaterally and also into the shoulders and neck upper back and neck causing some headaches and intensity of headaches is increasing as well with the pain in the base the shoulders and the neck patient reports her pain is a 10 on scale 10 is worse over the past week 8 on average 6 its least and is a 6 today. Patient reports no bowel or bladder incontinence no loss of motor function but significant fatigability the upper extremities also the lower extremities and her back "feels tired" patient reports the pain is radiating aching in the lower extremity and some of the left leg as well lateral aspect of the thigh and some on the right the lateral aspect of the upper thigh. Patient reports the neck feels tight as is her upper back and mid back as well as the low back. Patient has been taking Tylenol [id number] as well as Advil which helps to a moderate extent also using heat and stretching to the best of her ability and staying as active as possible with the pain but still significantly limiting her exercise abilities. Physical Exam: VS: Blood pressure is 147/71 pulse 83 respirations 18 temperature 98.1 F height is 5 foot 2 inches weight is 153 pounds PE: PHYSICAL EXAMINATION: GENERAL: The patient is awake, alert, oriented, appropriate, very pleasant in demeanor HEENT: Shows normocephalic, atraumatic. Extraocular movements are intact and symmetrical. Oral cavity: Mucous membranes moist and pink. NECK: Shows anterior throat supple without palpable lymphadenopathy noted. Swallow reflex symmetrical. CHEST: Shows normal on inspection. Breath sounds are clear bilaterally, distant but no rales or rhonchi. HEART: Shows S1, S2 clear. No murmurs auscultated. ABDOMEN: Soft, nontender, nondistended. No palpable organomegaly is noted. BACK: Shows spine grossly in the midline. Normal-appearing cervical lordotic curvature. Cervical paraspinous muscles show symmetrical with inspection on pal pation some very firm ropelike musculature throughout the upper middle lower decrease the paraspinous muscles bilaterally but symmetrical consistent with trigger point areas of musculature but without radiation. Patient is good rotation motion cervical spine both laterally will slightly guarded as well as with extension and forward flexion but without significant limitation. There is slightly increased thoracic kyphosis, some minor flattening of the lumbar lordotic curvature. Thoracic paraspinous musculature as well as repeat is muscular shows very firm ropelike musculature consistent with areas of trigger point musculature bilaterally slightly worse again on the right than the left also in the trapezius musculature and into the rhomboid musculature more on the right than left as well patient's lumbar paraspinous muscles shows likewise very firm ropelike musculature consistent with areas of trigger point muscles very tender with palpation but without specific radiation again worse on the right side than the left especially in the lower distribution of the musculature but without asymmetry EXTREMITIES: Lower extremities show deep tendon reflexes 1+ in the patellar and tendo calcaneus tendons. Motor exam is 5 on a scale of 5 with right dorsiflexion, extension, quadriceps and hamstring flexion and 5/5 on the left. Peripheral pulses are 1 posterior tibial. No peripheral edema is noted bilaterally. Lower extremities are warm and dry to touch, equal in color and appearance. SKIN: Shows warm and dry, good turgor. No edema. No sores, rashes or bruising throughout. Procedure: Procedure: Options were discussed with the patient. Patient's old chart was viewed as her current medication regimen updated current review of systems updated today as well. We will proceed with trigger point injections of the aforementioned identified musculature, risk discussed including but not limited to bleeding infection possibility of intravascular injection sequelae spread local of anesthetic with numbness, pneumothorax side effects steroid medication, and poor results regarding pain control. Patient understands wishes to proceed. Patient will return to the clinic in approximately 4 weeks for follow-up, was counseled as return appointment activity level and side effects to be aware of. Medication Injected: Med Injected: Patient in sitting position under sterile prep and drape, triggerpoints were divided in the superior inferior and middle aspect of the cervical paraspinous posterior as well as the bilateral trapezius musculature bilateral rhomboid musculature bilateral thoracic paraspinous muscular and bilateral lumbar paraspinous musculature. Each trigger point was identified and using a 25-gauge needle was injected after negative aspiration each injection site total of 14 cc 0.25 ropivacaine and total of 40 mg Depo-Medrol. Patient tolerated the procedure well had no complications. Condition at Discharge: Condition at Discharge: Condition at discharge stable, patient tolerated procedure well and had no complications. JANNETH TAYLOR MD Jun 26, 2021 16:53
--- NOTE | 2021-06-26 16:54 | PDOC4 ---
Procedure Note: ICD 10 Code: ICD 10 Code: M60.89 Procedure Note: Patient was consented for trigger point injections. Risk discussed including but not limited to bleeding infection possibility of intravascular injection sequelae spread of local anesthetic and numbness pneumothorax side effects steroid medication portals regarding pain control. Patient understands wished to proceed. Patient in sitting position under sterile prep and drape, triggerpoints were divided in the superior inferior and middle aspect of the cervical paraspinous posterior as well as the bilateral trapezius musculature bilateral rhomboid musculature bilateral thoracic paraspinous muscular and bilateral lumbar paraspinous musculature. Each trigger point was identified and using a 25-gauge needle was injected after negative aspiration each injection site total of 14 cc 0.25 ropivacaine and total of 40 mg Depo-Medrol. Patient tolerated the procedure well had no complications. JANNETH TAYLOR MD Jun 26, 2021 16:54
== END | disposition home or self-care (01) ==
LOC: PNCL 15:10
PROVIDERS: ATTEND Anesthesiology
DX: M79.18 Myalgia, other site (principal); M50.10 Cervical disc disorder with radiculopathy, unspecified cervical region; M96.1 Postlaminectomy syndrome, not elsewhere classified; M48.061 Spinal stenosis, lumbar region without neurogenic claudication; I10 Essential (primary) hypertension; I48.91 Unspecified atrial fibrillation; E78.00 Pure hypercholesterolemia, unspecified; K21.9 Gastro-esophageal reflux disease without esophagitis; M19.90 Unspecified osteoarthritis, unspecified site; Z87.891 Personal history of nicotine dependence; Z87.440 Personal history of urinary (tract) infections; Z79.82 Long term (current) use of aspirin; Z79.899 Other long term (current) drug therapy; Z90.49 Acquired absence of other specified parts of digestive tract; Z98.890 Other specified postprocedural states; Z88.0 Allergy status to penicillin; Z88.6 Allergy status to analgesic agent; Z72.89 Other problems related to lifestyle
CPT/HCPCS: 20553; J3490; J1030

== ENCOUNTER → 2021-10-25 | Outpatient (CLI) | payer MEDICARE, OTHER ==
[2021-03-22 16:15] VITALS: BP 116/63
[~2021-10-25] MED LIST changes: +DEXAMETHASONE PRES.FREE 10 MG/ML VIAL. ONE; -methylPREDNISolone ACETATE 40 MG/ML VIAL. ONE
--- NOTE | 2021-10-25 10:44 | PDOC ---
Progress Note - Pain Clinic Date of Service: DOS: DATE: 10/25/21 TIME: 10:38 Diagnosis: Dx: Myofascial pain Lumbar radiculopathy with lumbar postlaminectomy syndrome Cervical radiculopathy with cervical degenerative disc disease History or Present Illness: HPI: 76-year-old female returns last seen June 26, 2021 patient very well after a trigger point injections at that time with about 80% improvement patient reports she did very well for several months and is now been doing physical therapy as well as TENS unit placement which is helping the pain especially in the mid and low back but is becoming much more severe without any specific injury or accident reports it is a 10 on scale 10 is worse over the past week 8 on average 6 its least is an 8 today patient has a pain is from the base of the skull into the neck and the shoulders upper back low back mid back and into the hips and lateral radiating pain into the thighs as well in the lateral aspect to about mid thigh patient reports is worse with walking standing changing positions sitting for prolonged periods wakes her from sleep about once a night every 6 hours. Patient describes as aching and dull shooting in the hips cramping in the neck shoulders upper back mid back and low back and can be constant with standing walking repetitive motions. Patient reports no bowel or bladder incontinence no loss of strength but significant fatigability with the legs when the radiating pain is present usually with standing in 1 position. Physical Exam: VS: Blood pressure is 131/73 pulse 72 respirations 18 temperature 98.1 F height 5 feet 2 inches weight is 160 pounds. PE: PHYSICAL EXAMINATION: GENERAL: The patient is awake, alert, oriented, appropriate, very pleasant in demeanor HEENT: Shows normocephalic, atraumatic. Extraocular movements are intact and symmetrical. Oral cavity: Mucous membranes moist and pink. NECK: Shows anterior throat supple without palpable lymphadenopathy noted. Swallow reflex symmetrical. CHEST: Shows normal on inspection. Breath sounds are clear bilaterally. HEART: Shows S1, S2 clear. No murmurs auscultated. ABDOMEN: Soft, nontender, nondistended. No palpable organomegaly is noted. No rebound or guarding demonstrated. BACK: Shows spine grossly in the midline. Normal-appearing cervical lordotic curvature. Cervical paraspinous muscles show symmetrical with inspection on palpation some significant tenderness with very firm ropelike musculature bilaterally in the upper middle and lower distribution the paraspinous musculature also into the superior medial trapezius and lateral trapezius with very firm ropelike musculature again consistent with trigger point areas of musculature very firm and tender but without radiation. There is slightly increased thoracic kyphosis, some minor flattening of the lumbar lordotic curvature. Lumbar paraspinous muscles show symmetrical on inspection, on palpation shows some moderate tenderness diffusely throughout the upper, middle and lower distribution of the paraspinous muscles with significant tenderness in multiple areas of very firm ropelike musculature throughout the thoracic upper middle lower distribution as well as the lumbar upper middle lower distribution bilaterally consistent with trigger point areas of musculature but without specific radiation with palpation. The patient has good rotational motion of the lumbar spine, both laterally as well as extension and flexion without significant difficulty. No tenderness over the spinous processes, sacrum or sacroiliac regions. EXTREMITIES: Lower extremities show deep tendon reflexes 1+ in the patellar and tendo calcaneus tendons. Motor exam is 5 on a scale of 5 with right dorsiflexion, extension, quadriceps and hamstring flexion and 5/5 on the left. Peripheral pulses are 1+ posterior tibial. No peripheral edema is noted bilaterally. Lower extremities are warm and dry to touch, equal in color and appearance. 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 SKIN: Shows warm and dry, good turgor. No edema. No sores, rashes or bruising throughout. Procedure: Procedure: Options were discussed with patient. Patient's old chart was reviewed as her current medication regimen updated her review of systems updated today as well. We will proceed with trigger point injections of the bilateral cervical paraspinous posterior bilateral trapezius muscles or bilateral thoracic paraspin ous muscles or bilateral lumbar paraspinous musculature. Risk were discussed including but not limited to bleeding infection possibility of intravascular injection sequelae spread local anesthetic numbness pneumothorax side effects steroid medication portals regarding pain control. Patient understands and wished to proceed. Patient will follow up with the clinic in approximate 4 weeks or as necessary. Medication Injected: Med Injected: Under sterile prep and drape patient sitting position trigger points were identified in the upper middle lower decrease the cervical paraspinous posture, bilateral trapezius muscular, bilateral thoracic paraspinous musculature upper lower and middle distribution as well as upper middle lower distribution of the lumbar paraspinous musculature. Using 25-gauge needle after negative aspiration each injection site total of 12 cc 0.25% bupivacaine and 10 mg dexamethasone was injected. Patient tolerated the procedure well and had no complications. Condition at Discharge: Condition at Discharge: Condition at discharge stable, the patient tolerated the procedure well and had no complications. JANNETH TAYLOR MD Oct 25, 2021 10:44
--- NOTE | 2021-10-25 10:44 | PDOC4 ---
Procedure Note: ICD 10 Code: ICD 10 Code: M60.89 Procedure Note: Patient was consented for trigger point injections. Risk were discussed including but not limited to bleeding infection possibility intravascular ejection sequelae spread local anesthetic numbness pneumothorax side effects steroid medication portals regarding pain control. Patient understands wishes to proceed. Under sterile prep and drape patient sitting position trigger points were identified in the upper middle lower decrease the cervical paraspinous posture, bilateral trapezius muscular, bilateral thoracic paraspinous musculature upper lower and middle distribution as well as upper middle lower distribution of the lumbar paraspinous musculature. Using 25-gauge needle after negative aspiration each injection site total of 12 cc 0.25% bupivacaine and 10 mg dexamethasone was injected. Patient tolerated the procedure well and had no complications. JANNETH TAYLOR MD Oct 25, 2021 10:44
== END | disposition home or self-care (01) ==
LOC: PNCL 09:33
PROVIDERS: ATTEND Anesthesiology
DX: M79.18 Myalgia, other site (principal); M50.10 Cervical disc disorder with radiculopathy, unspecified cervical region; M96.1 Postlaminectomy syndrome, not elsewhere classified; M54.16 Radiculopathy, lumbar region; I10 Essential (primary) hypertension; I48.91 Unspecified atrial fibrillation; E78.00 Pure hypercholesterolemia, unspecified; K21.9 Gastro-esophageal reflux disease without esophagitis; M19.90 Unspecified osteoarthritis, unspecified site; Z87.891 Personal history of nicotine dependence; Z90.49 Acquired absence of other specified parts of digestive tract; Z98.890 Other specified postprocedural states; Z79.899 Other long term (current) drug therapy; Z72.89 Other problems related to lifestyle; Z88.0 Allergy status to penicillin; Z88.6 Allergy status to analgesic agent
CPT/HCPCS: 20553; J1100; J3490

== ENCOUNTER → 2021-12-12 | Outpatient (CLI) | payer MEDICARE, OTHER ==
[2021-03-22 16:15] VITALS: BP 116/63
[~2021-12-12] MED LIST changes: -CHOL20002 PO; +CHOL200052 PO; +IOHEXOL 180 MG/ML 10 ML VIAL. ONE
--- NOTE | 2021-12-12 11:10 | PDOC ---
Progress Note - Pain Clinic Date of Service: DOS: DATE: 12/12/21 TIME: 11:05 Diagnosis: Dx: Bilateral greater trochanteric bursitis Myofascial pain Lumbar radiculopathy lumbar postlaminectomy syndrome Cervical radiculopathy with cervical degenerative disc disease History or Present Illness: HPI: 76-year-old female returns for follow-up status post trigger point junctions October 25, 2021 patient did very well with these about 80% improvement her chief complaint today is now pain in the bilateral hips patient reports getting worse over the past month or so not the result of any specific injury or accident that she is aware she is had no falls at home patient reports pain radiating in the lateral aspect of the hips and very tender to touch worse with walking and standing specially stepping forward or to the side with significant tenderness more on the right than the left but present bilaterally radiating to the lateral thighs to the knees again worse on the right patient reports is a 10 on scale 10 is worse over the past week 10 on average 8 its least and is a 10 today patient ports aching radiating worse with walking and standing when she is sitting it feels fairly comfortable with sooner she gets up to change positions its worse on the right than left and present pain in bilateral lateral hips. Patient reports no motor or sensory deficits no bowel or bladder incontinence. Physical Exam: VS: Blood pressure is 109/70 pulse 60 respirations 18 temperature 97.9 F weight is 161 pounds. PE: PHYSICAL EXAMINATION: GENERAL: The patient is awake, alert, oriented, appropriate, very pleasant in demeanor HEENT: Shows normocephalic, atraumatic. Extraocular movements are intact and symmetrical. Oral cavity: Mucous membranes moist and pink. NECK: Shows anterior throat supple without palpable lymphadenopathy noted. Swallow reflex symmetrical. CHEST: Shows normal on inspection. Breath sounds are clear bilaterally, distant but no rales or rhonchi auscultated. HEART: Shows S1, S2 clear. No murmurs auscultated. ABDOMEN: Soft, nontender, nondistended. No palpable organomegaly is noted. BACK: Shows spine grossly in the midline. Normal-appearing cervical lordotic curvature. There is mildly increased thoracic kyphosis, some flattening of the lumbar lordotic curvature. Lumbar paraspinous muscles show symmetrical on inspection, on palpation shows some moderate tenderness diffusely throughout the upper, middle and lower distribution of the paraspinous muscles with firm tenderness throughout the mid and upper thoracic as well as the lumbar paraspinous musculature bilaterally. The patient has good rotational motion of the lumbar spine, both laterally as well as extension and flexion without significant difficulty. No tenderness over the spinous processes, sacrum or sacroiliac regions. EXTREMITIES: Lower extremities show deep tendon reflexes 2+ in the patellar and tendo calcaneus tendons. Motor exam is 5 on a scale of 5 with right dorsiflexion, extension, quadriceps and hamstring flexion and 5/5 on the left. Peripheral pulses are 1+ posterior tibial. No peripheral edema is noted bilaterally. Lower extremities are warm and dry to touch, equal in color and appearance. Patient has significant tenderness over the greater trochanters right greater than left with even moderate palpation with significant tenderness and radiation to the lateral aspect of the lateral thigh bilaterally again more prominent on the right than the left. SKIN: Shows warm and dry, good turgor. No edema. No sores, rashes or bruising throughout. Procedure: Procedure: Options were discussed with the patient. Patient's old chart was used for medication regimen updated current review of systems updated today as well. We will proceed with bilateral greater trochanteric bursa injections today with fluoroscopic guidance. Risks are discussed including but not limited to bleeding infection possibility of intravascular injection sequelae spread of local anesthetic numbness side effects steroid medications exposure to fluoroscopy, and poor results regarding pain control. Patient understands and wished to proceed. Patient will return to clinic in approximately 1 week for follow-up, was counseled as to return appointment, activity level, and side eff ects to be aware of. Medication Injected: Med Injected: Under sterile prep and drape patient in supine position using C-arm fluoroscopic guidance patient's bilateral greater trochanters were visualized. Using 25- gauge needle and 1% lidocaine area lateral to the greater trochanters were anesthetized. Using a 25-gauge needle under direct fluoroscopic visualization the greater trochanteric bursa was contacted with negative aspiration noted. 1.5 cc of contrast was then injected with good local spread at the greater trochanteric bursa without washout bilaterally. At this time, a solution containing 3 cc of 0.25% bupivacaine and 10 mg dexamethasone was then injected into each greater trochanteric bursa. Patient tolerated the procedure well and had no complications. Condition at Discharge: Condition at Discharge: Condition at discharge is stable, patient tolerated the procedure well and had no complications. JANNETH TAYLOR MD December 12, 2021 11:10
--- NOTE | 2021-12-12 11:11 | PDOC4 ---
Procedure Note: ICD 10 Code: ICD 10 Code: M70.63 Procedure Note: Patient was consented for bilateral greater trochanteric bursa injections with fluoroscopic guidance. Risk were discussed including but not limited to bleeding infection possibility of intravascular injection sequelae spread of local anesthetic numbness side effects steroid medication exposure to fluoroscopy and poor results regarding pain control. Patient understands and wishes to proceed. Under sterile prep and drape patient in supine position using C-arm fluoroscopic guidance patient's bilateral greater trochanters were visualized. Using 25- gauge needle and 1% lidocaine area lateral to the greater trochanters were anesthetized. Using a 25-gauge needle under direct fluoroscopic visualization the greater trochanteric bursa was contacted with negative aspiration noted. 1.5 cc of contrast was then injected with good local spread at the greater trochanteric bursa without washout bilaterally. At this time, a solution containing 3 cc of 0.25% bupivacaine and 10 mg dexamethasone was then injected into each greater trochanteric bursa. Patient tolerated the procedure well and had no complications. JANNETH TAYLOR MD December 12, 2021 11:11
== END | disposition home or self-care (01) ==
LOC: PNCL 10:13
PROVIDERS: ATTEND Anesthesiology
DX: M70.62 Trochanteric bursitis, left hip (principal); M70.61 Trochanteric bursitis, right hip; M79.18 Myalgia, other site; M50.10 Cervical disc disorder with radiculopathy, unspecified cervical region; M96.1 Postlaminectomy syndrome, not elsewhere classified; I10 Essential (primary) hypertension; I48.91 Unspecified atrial fibrillation; E78.00 Pure hypercholesterolemia, unspecified; K21.9 Gastro-esophageal reflux disease without esophagitis; M19.90 Unspecified osteoarthritis, unspecified site; Z90.49 Acquired absence of other specified parts of digestive tract; Z98.890 Other specified postprocedural states; Z79.899 Other long term (current) drug therapy; Z87.891 Personal history of nicotine dependence; Z72.89 Other problems related to lifestyle; Z88.0 Allergy status to penicillin; Z88.6 Allergy status to analgesic agent
CPT/HCPCS: 20610; 77002; J1100; J3490; Q9965

== ENCOUNTER → 2021-12-18 | Outpatient (CLI) | payer MEDICARE, OTHER ==
[2021-03-22 16:15] VITALS: BP 116/63
[~2021-12-18] MED LIST changes: -IOHEXOL 180 MG/ML 10 ML VIAL. ONE
--- NOTE | 2021-12-18 12:44 | PDOC ---
Progress Note - Pain Clinic Date of Service: DOS: DATE: 12/18/21 TIME: 12:37 Diagnosis: Dx: Myofascial pain Lumbar radiculopathy lumbar postlaminectomy syndrome Cervical radiculopathy with cervical degenerative disc disease Greater trochanteric bursitis, bilateral History or Present Illness: HPI: 36-year-old female returns for follow-up status post bilateral greater trochanteric bursa injections with about 80% improvement after injections patient reports her main complaint today is pain in the base the neck shoulders upper back mid back low back especially on the left side of the mid low back and into the gluteus patient reports is very tight and firm burning pain radiating down the back and across the back sharp and dull at alternating in the mid back upper back and shooting across the shoulders with a tingling sensation in the shoulders as well this is worse with repetitive motions with standing changing positions awaken her from sleep at night about once a night but feels better with laying down patient reports her pain is a 10 on scale 10 is worse over the past week 9 on average 8 its least is an 8 today. Patient reports loss of motor function no radiation to the upper extremities past the shoulders and or the lower extremities past the posterior hips. Patient has been using heating pads as well as doing stretching exercises also oral analgesics which have not been successful in decreasing the pain significantly. Patient reports no bowel or bladder incontinence. Physical Exam: VS: Blood pressure is 146/71 pulse 67 respirations 18 temperature 98.2 F height is 5 feet 2 inches weight 159 pounds. PE: PHYSICAL EXAMINATION: GENERAL: The patient is awake, alert, oriented, appropriate, very pleasant in demeanor HEENT: Shows normocephalic, atraumatic. Extraocular movements are intact and symmetrical. NECK: Shows anterior throat supple without palpable lymphadenopathy noted. Swallow reflex symmetrical. CHEST: Shows normal on inspection. Breath sounds are clear bilaterally. HEART: Shows S1, S2 clear. No murmurs auscultated. ABDOMEN: Soft, nontender, nondistended. No palpable organomegaly is noted. No rebound or guarding demonstrated. BACK: Shows spine grossly in the midline. Normal-appearing cervical lordotic curvature. Cervical paraspinous posterior show symmetrical inspection on palpation some very firm ropelike musculature throughout the upper middle lower decrease the paraspinous muscles bilaterally very firm consistent with trigger point areas of musculature but without specific radiation on palpation. Patient shows good rotation motion cervical spine but slightly guarded with lateral rota tion past 45 degrees as well as extension and forward flexion. There is mildly increased thoracic kyphosis, some flattening of the lumbar lordotic curvature. Thoracic paraspinous muscles show very tender ropelike musculature throughout the upper middle lower decrease the paraspinous muscles as well as the rhomboid musculature, bilaterally with very firm ropelike musculature consistent with trigger point areas but without radiation. Lumbar paraspinous muscles show symmetrical on inspection, on palpation shows some moderate tenderness diffusely throughout the upper, middle and lower distribution of the paraspinous muscles, with significant tenderness throughout the upper middle lower decrease the paraspinous musculature worse on the left than the right with some mild hypertrophy on the left side with very firm ropelike muscular consistent with trigger point areas of musculature but without radiation on palpation. The patient has good rotational motion of the lumbar spine, both laterally as well as extension and flexion without significant difficulty. No tenderness over the spinous processes, sacrum or sacroiliac regions. EXTREMITIES: Lower extremities show deep tendon reflexes 1+ in the patellar and tendo calcaneus tendons. Motor exam is 5 on a scale of 5 with right dorsiflexion, extension, quadriceps and hamstring flexion and 5/5 on the left. Peripheral pulses are 1+ posterior tibial. No peripheral edema is noted bilaterally. Lower extremities are warm and dry to touch, equal in color and appearance. Upper extremities show deep tendon reflexes 2+ in the bicep tricep tendons, motor exam strong with mental health program director strength rated 5 out of 5 flexion. SKIN: Shows warm and dry, good turgor. No edema. No sores, rashes or bruising throughout. Procedure: Procedure: Options were discussed with the patient. Patient's old chart was reviewed as her current medication regimen updated current review of systems updated today as well. We will proceed with trigger point injections of the identified musculature, bilateral cervical paraspinous muscular, bilateral trapezius muscular, bilateral thoracic paraspinous muscles, bilateral lumbar paraspinous musculature. Risk were discussed including but not limited to bleeding infection possibility of intravascular injection ,with sequelae, spread of local anesthetic and numbness, pneumothorax, side effects steroid medication and poor results regarding pain control. Patient understands wished to proceed. Patient will return to clinic in approximate 4 weeks for follow-up, was counseled as to return appointment, activity level, and side effects to be aware of. Medication Injected: Med Injected: In sitting position under sterile prep and drape patient's neck upper and lower back was sterilely prepped and trigger point areas were identified in the bilateral cervical paraspinous posture, bilateral trapezius muscular, bilateral thoracic paraspinous muscular, bilateral rhomboid musculature, bilateral lumbar paraspinous musculature. Using 25-gauge needle after negative aspiration each injection site total of 14 cc 0.25% ropivacaine and total of 20 mg dexamethasone were injected without sequelae. Patient tolerated procedure well and had no complications. Condition at Discharge: Condition at Discharge: Condition at discharge is stable, paced tolerated procedure well and had no complications. JANNETH TAYLOR MD December 18, 2021 12:44
--- NOTE | 2021-12-18 12:45 | PDOC4 ---
Procedure Note: ICD 10 Code: ICD 10 Code: M60.89 Procedure Note: Patient was consented for trigger point injections. Risk were discussed including but not limited to bleeding infection possibility of intravascular injection sequelae spread of local anesthetic and numbness pneumothorax side effects of steroid medication and poor results regarding pain control. Patient understands and wished to proceed. In sitting position under sterile prep and drape patient's neck upper and lower back was sterilely prepped and trigger point areas were identified in the bilateral cervical paraspinous posture, bilateral trapezius muscular, bilateral thoracic paraspinous muscular, bilateral rhomboid musculature, bilateral lumbar paraspinous musculature. Using 25-gauge needle after negative aspiration each injection site total of 14 cc 0.25% ropivacaine and total of 20 mg dexamethasone were injected without sequelae. Patient tolerated procedure well and had no complications. JANNETH TAYLOR MD December 18, 2021 12:45
== END | disposition home or self-care (01) ==
LOC: PNCL 11:41
PROVIDERS: ATTEND Anesthesiology
DX: M79.18 Myalgia, other site (principal); M50.10 Cervical disc disorder with radiculopathy, unspecified cervical region; M96.1 Postlaminectomy syndrome, not elsewhere classified; M70.62 Trochanteric bursitis, left hip; M70.61 Trochanteric bursitis, right hip; I10 Essential (primary) hypertension; I48.91 Unspecified atrial fibrillation; E78.00 Pure hypercholesterolemia, unspecified; K21.9 Gastro-esophageal reflux disease without esophagitis; Z87.891 Personal history of nicotine dependence; Z90.49 Acquired absence of other specified parts of digestive tract; Z98.890 Other specified postprocedural states; Z79.899 Other long term (current) drug therapy; Z72.89 Other problems related to lifestyle; Z88.0 Allergy status to penicillin; Z88.6 Allergy status to analgesic agent
CPT/HCPCS: 20553; J1100; J3490